=== PATIENT | male | born 1935 | race Caucasian/White ===

== ENCOUNTER 2016-03-25 11:49 | Emergency (ER) | payer MEDICARE, BC ==
[2016-03-25] MEDS ORDERED: ONDANSETRON HCL/PF 2 MG/ML VIAL IV ONE (13:18)
[2016-03-25 13:33] LABS: Hematocrit 35.2 % (42.0-52.0); Hemoglobin 11.4 gm/dL (13.5-18.0); Mean Cell Volume 85.2 fl (78-100); Mean Corpuscular Hemoglobin 27.6 pg (27-31); Mean Corpuscular Hgb Conc 32.4 g/dl (32-36); Mean Platelet Volume 9.5 fl (6.0-9.5); Neutrophil # 5.5 K/mm3 (1.3-6.0); Neutrophil % 72.2 % (42-75.0); Platelet Count 226 K/mm3 (150-450); Red Blood Count 4.13 M/mm3 (4.7-6.0); Red Cell Distribution Width 13.2 % (11.5-14.0); White Blood Count 7.6 K/mm3 (4.0-10.5)
[2016-03-25 13:45] LABS: Prothrombin Time (Patient) 10.9 Seconds (9.4-11.4)
[2016-03-25 13:46] LABS: INR 1.05 INR (0.90-1.10); Partial Thrombolplastin Time 27.7 Seconds (24-32)
[2016-03-25 13:51] LABS: ALT 20 U/L (19-67); AST 17 U/L (0-48); Albumin * 3.4 gm/dl (3.4-5.0); Alkaline Phosphatase * 121 U/L (50-170); Amylase * 30 U/L (25-115); Anion Gap 11.7 mmol/L (6.8-13.8); BUN/Creatinine Ratio 22.8 (9.0-21.6); Bilirubin, Total 0.4 mg/dL (0.0-1.1); Blood Urea Nitrogen 26 mg/dL (6-23); Ca. Corrected For Albumin 9.6 mg/dL (8.4-10.2); Calcium * 9.4 mg/dL (7.9-10.9); Carbon Dioxide 26.6 mmol/L (24-32.6); Chloride 108 mmol/L (97-106); Glucose * 108 mg/dL (70-110); Lipase 91 U/L (73-393); Potassium 4.3 mmol/L (3.4-4.6); Sodium 142 mmol/L (132-142); Total Protein 6.6 gm/dL (6.2-8.2); Troponin I Less than 0.017 ng/ml (0.00-0.10)
[2016-03-25 14:14] LABS: Urine Bilirubin Negative (NEGATIVE); Urine Blood 50 /ul (NEGATIVE); Urine Ketone Negative (NEGATIVE); Urine Protein 30 mg/dL (NEGATIVE); Urine Urobilinogen Normal (NORMAL); Urine pH 7.5 pH (5.0-7.0)
[2016-03-25 14:15] LABS: Urine Appearance Slightly Cloudy; Urine Bacteria TRACE; Urine Color Yellow; Urine Nitrite Positive (NEGATIVE); Urine WBC 0-5 /hpf (0-5)
--- NOTE | 2016-03-25 14:53 | ERNOTE ---
Medical Problem HPI - Narrative Date of Service: 03/25/16 - General Chief Complaint: Nausea/Vomiting Time Seen by Provider: 03/25/16 13:15 Source: patient, family - Exam Limitations: no limitations - Immun/Allergies/Home Medications Immunizations: IMMUNIZATION HX Immunizations Up to Date Yes History of Influenza Vaccine Yes Hx Pneumococcal Vaccination More Information Required Allergies/Adverse Reactions: Allergies orange (food color) Allergy (Intermediate, Verified 03/25/16 12:04) Shortness of Breath orange flavor Allergy (Intermediate, Verified 03/25/16 12:04) Shortness of Breath colchicine [From Colcrys] Allergy (Unknown, Verified 03/25/16 12:04) promethazine HCl [From Phenergan] Allergy (Unknown, Verified 03/25/16 12:04) sertraline Allergy (Unknown, Verified 03/25/16 12:04) hydrocodone [Hydrocodone] Adverse Reaction (Mild, Verified 03/25/16 12:04) out of his head nortriptyline [Nortriptyline] Adverse Reaction (Mild, Verified 03/25/16 12:04) Headache oxycodone [Oxycodone] Adverse Reaction (Mild, Verified 03/25/16 12:04) out of his head pregabalin [From Lyrica] Adverse Reaction (Mild, Verified 03/25/16 12:04) Headache zolpidem [Zolpidem] Adverse Reaction (Mild, Verified 03/25/16 12:04) out of his head Home Medications: HOME MEDICATIONS Cephalexin [Keflex] 1,000 mg PO BID #28 capsule 03/25/16 [Last Taken Unknown] - History of Present History Timing: constant Severity: mild Modifying Factors - (Improves): Present: other - nothing Modifying Factors - (Worsens): Present: movement Review of Systems - Review of Systems Constitutional: Present: malaise EYE: Present: no symptoms reported ENT: Present: no symptoms reported Respiratory: Present: cough Cardiology: Present: chest pain Gastrointestinal/Abdominal: Present: abdominal pain Genitourinary: Present: pain Musculoskeletal: Present: no symptoms reported Skin: Present: no symptoms reported Neurological: Present: no symptoms reported Endocrine: Present: no symptoms reported Hematologic/Lymphatic: Present: no symptoms reported Psych: Present: no symptoms reported - Patient's Past Medical History Patient History - Medical: Anemia, Arthritis, Chronic Pain, GERD, Kidney stone, Other Patient History - Cardiac/Respiratory: Coronary Heart Disease, COPD, Myocardial Infarction, Valvular Heart Disease - aortic stenosis, aortic regurgitation Patient History - Cancer: Prostate Patient History - Surgical Procedures: Appendectomy, Back Surgery, Cataracts, Colonoscopy, Cardiac stent, EGD, Total Hip Replacement, Total Knee Replacement, Other - Family History Mother Family History - Medical: , Alzheimer's Disease Family History - Cardiac/Respiratory: No pertinent hx - Social History Living Situations: home Does anyone smoke in the home?: No Smoking Status: Never smoker Have you smoked in the past 12 months: No Do you dip or chew tobacco: No Alcohol Use: rarely Drug Use: none Physical Exam - Physical Exam General Appearance: Present: wd/wn, alert, no apparent distress Eye Exam: Normal inspection: bilateral, PERRL: bilateral Ears, Nose, Throat: Present: normal ENT inspection, hearing grossly normal, normal pharynx Neck: Present: normal inspection, nontender Respiratory: Present: no respiratory distress, no accessory muscle use, chest nontender, lungs clear, crackles - Diffuse on both lungs Cardiovascular/Chest: Present: regular rate, rhythm, normal peripheral pulses, systolic murmur Peripheral Pulses: N=norm/S=strong/W=weak/B=bound/A=absent: Carotid (R): Normal , Carotid (L): Normal, Radial (R): Normal, Radial (L): Normal, Dorsalis-pedis (R ): Normal, Dorsalis-pedis (L): Normal Gastrointestinal/Abdominal: Present: normal bowel sounds, soft, tenderness - Lower abdomen diffuse. Absent: guarding, rebound, McBurney sign, Obturator sign , Thomas sign, mass, hernia Back Exam: Present: no CVA tenderness Extremity Exam: Present: normal inspection, non-tender, no edema Neurological Exam: Present: alert, oriented, normal mood/affect, no motor/ sensory deficits, box packer II-XII nml as tested, normal cerebellar test, facial droop Skin Exam: Present: normal color, warm/dry. Absent: skin rash Lymphatic Exam: Present: no adenopathy ED Progress - Date and Time Seen: Date and Time: 03/25/16 16:28 Patient with supra pubic tenderness. Patient has no distention and at the moment no guarding and no rebound. Patient has a soft abdomen. Patient has been given Tx for UTI. Patient with a good social support. 03/25/16 16:31 Patient with Hx of rib Fx and chronic chest pain. Patient with no ST Elevations and negative Trop. - Results and Orders Patient's Lab Results:: I have reviewed the patient's lab results. - Vital Signs Patient's Vital Signs:: I have reviewed the patient's vital signs. Vital Signs: Vital Signs 03/25/16 03/25/16 03/25/16 11:56 13:28 13:54 Temperature 36.0 C L Pulse Rate 80 75 84 Respiratory 20 22 H 12 Rate Blood Pressure 135/85 145/59 142/74 O2 Sat by Pulse 96 95 98 Oximetry 03/25/16 14:31 Temperature Pulse Rate 85 Respiratory 16 Rate Blood Pressure 175/68 O2 Sat by Pulse 95 Oximetry - EKG EKG: NSR, no ST T wave changes EKG Comments: No ST Elevations, HR: 69, LAD - X-Ray X-Ray #1 X-Ray: chest X-ray Comments: No acute processes reported by radiologist - Progress/Reassessment Chief Complaint: Nausea/Vomiting Progress:: Improved Plan - Plan Plan: Patient will be given antibiotics and will be discharge home Departure - Departure Clinical Impression: UTI (urinary tract infection) Chest pain Qualifiers: Chest pain type: unspecified Qualified Code(s): R07.9 - Chest pain, unspecified Abdominal pain Qualifiers: Abdominal location: lower abdomen, unspecified Qualified Code(s): R10.30 - Lower abdominal pain, unspecified Disposition: Home self-care Condition: Stable Instructions: Chest Wall Pain, [id number], Abdominal Pain, Adult, Easy-to- Read, Urinary Tract Infection, Adult, [id number] Referrals: Cricket Yi DO [Primary Care Provider] - Prescriptions: Cephalexin [Keflex] 1,000 mg PO BID #28 capsule
[2016-03-25] MEDS ORDERED: ONDANSETRON HCL/PF 2 MG/ML VIAL ONE (15:08)
[2016-03-25 16:41] VITALS: BP 143/83
== END 2016-03-25 16:45 | disposition home or self-care (01) ==
LOC: ER 11:49
DX: R07.9 Chest pain, unspecified (principal); N39.0 Urinary tract infection, site not specified; Z96.649 Presence of unspecified artificial hip joint; Z96.659 Presence of unspecified artificial knee joint; Z95.5 Presence of coronary angioplasty implant and graft; Z85.46 Personal history of malignant neoplasm of prostate

== ENCOUNTER 2016-04-06 09:02 | Emergency (ER) | payer MEDICARE, BC ==
[2016-04-06 10:31] LABS: Hematocrit 32.3 % (42.0-52.0); Hemoglobin 10.5 gm/dL (13.5-18.0); Mean Cell Volume 85.4 fl (78-100); Mean Corpuscular Hemoglobin 27.8 pg (27-31); Mean Corpuscular Hgb Conc 32.5 g/dl (32-36); Mean Platelet Volume 9.8 fl (6.0-9.5); Neutrophil # 3.2 K/mm3 (1.3-6.0); Neutrophil % 69.1 % (42-75.0); Platelet Count 192 K/mm3 (150-450); Red Blood Count 3.78 M/mm3 (4.7-6.0); Red Cell Distribution Width 13.7 % (11.5-14.0); White Blood Count 4.6 K/mm3 (4.0-10.5)
[2016-04-06 10:44] LABS: Albumin * 3.1 gm/dl (3.4-5.0); Anion Gap 9.7 mmol/L (6.8-13.8); BUN/Creatinine Ratio 22.1 (9.0-21.6); Bilirubin, Total 0.5 mg/dL (0.0-1.1); Ca. Corrected For Albumin 9.2 mg/dL (8.4-10.2); Calcium * 8.8 mg/dL (7.9-10.9); Carbon Dioxide 28.3 mmol/L (24-32.6); Total Protein 6.4 gm/dL (6.2-8.2)
[2016-04-06 11:17] LABS: Urine Bilirubin Negative (NEGATIVE); Urine Blood 25 /ul (NEGATIVE); Urine Ketone Negative (NEGATIVE); Urine Nitrite Negative (NEGATIVE); Urine Protein 30 mg/dL (NEGATIVE); Urine Specific Gravity >=1.030 SP.GR. (1.005-1.030); Urine Urobilinogen Normal (NORMAL); Urine pH 5.5 pH (5.0-7.0)
[2016-04-06 12:08] LABS: Urine Color Yellow
[2016-04-06 12:09] LABS: Urine Appearance Clear; Urine Bacteria TRACE; Urine WBC 0-5 /hpf (0-5)
--- NOTE | 2016-04-06 12:20 | ERNOTE ---
Abdominal HPI - Narrative Date of Service: 04/06/16 - General Chief Complaint: Constipation Time Seen by Provider: 04/06/16 10:16 Source: patient Exam Limitations: no limitations - Immun/Allergies/Home Medications Immunizatons: IMMUNIZATION HX Immunizations Up to Date Yes History of Influenza Vaccine Yes Hx Pneumococcal Vaccination More Information Required Allergies/Adverse Reactions: Allergies orange (food color) Allergy (Intermediate, Verified 04/06/16 09:21) Shortness of Breath orange flavor Allergy (Intermediate, Verified 04/06/16 09:21) Shortness of Breath colchicine [From Colcrys] Allergy (Unknown, Verified 04/06/16 09:21) promethazine HCl [From Phenergan] Allergy (Unknown, Verified 04/06/16 09:21) sertraline Allergy (Unknown, Verified 04/06/16 09:21) hydrocodone [Hydrocodone] Adverse Reaction (Mild, Verified 04/06/16 09:21) out of his head nortriptyline [Nortriptyline] Adverse Reaction (Mild, Verified 04/06/16 09:21) Headache oxycodone [Oxycodone] Adverse Reaction (Mild, Verified 04/06/16 09:21) out of his head pregabalin [From Lyrica] Adverse Reaction (Mild, Verified 04/06/16 09:21) Headache zolpidem [Zolpidem] Adverse Reaction (Mild, Verified 04/06/16 09:21) out of his head Home Medications: HOME MEDICATIONS Cephalexin [Keflex] 500 mg PO 04/06/16 [Last Taken Unknown] Montelukast Sodium [Singulair] 10 mg PO DAILY 04/06/16 [Last Taken Unknown] Tamsulosin HCl [Flomax] 0.4 mg PO DAILY 04/06/16 [Last Taken Unknown] traMADol HCL [Ultram] 50 mg PO QID PRN 04/06/16 [Last Taken Unknown] - History of Present Illness Narrative: Patient presents to the ED with complaint of constipation. He relates he had recent back surgery and hasn't had a bowel movement for 7 days. Home enema did not help. He denies abdominal pain. No fever. No vomiting. No CP or SOB. Tramadol for pain at home from his back surgery. Nothing seems to make this better or worse. Timing: constant Quality: moderate Activities at Onset: none Modifying Factors - (Improves): Present: other - nothing Modifying Factors - (Worsens): Present: other - nothing Associated Symptoms: Absent: chest pain, diarrhea-gross blood, fever/chills, loss of appetite, shortness of breath, swelling/mass in abdomen Prior Treatment: Present: other - recent back surgery Review of Systems - Review of Systems Constitutional: Absent: fever Respiratory: Absent: shortness of breath Cardiology: Absent: chest pain Gastrointestinal/Abdominal: Absent: abdominal pain Genitourinary: Present: other - states on ABx for recent infection. Absent: dysuria - Patient's Past Medical History Patient History - Medical: Anemia, Arthritis, Chronic Pain, GERD, Kidney stone, Other Patient History - Cardiac/Respiratory: COPD, Myocardial Infarction, Valvular Heart Disease Patient History - Cancer: Prostate Patient History - Surgical Procedures: Appendectomy, Back Surgery, Cataracts, Colonoscopy, Cardiac stent, EGD, Total Hip Replacement, Total Knee Replacement, Other Patient History - Other: None - Family History Mother Family History - Medical: , Alzheimer's Disease Family History - Cardiac/Respiratory: No pertinent hx - Social History Living Situations: home Does anyone smoke in the home?: No Smoking Status: Never smoker Alcohol Use: rarely Drug Use: none - Immunizations Immunizations Up to Date: Yes Hx Pneumococcal Vaccination: More Information Required to Determine History of Influenza Vaccine: Yes Physical Exam - Physical Exam General Appearance: Present: alert, no apparent distress Eye Exam: Normal inspection: bilateral, PERRL: bilateral Ears, Nose, Throat: Present: normal ENT inspection Neck: Present: normal inspection Respiratory: Present: no respiratory distress, normal breath sounds, no accessory muscle use, lungs clear Cardiovascular/Chest: Present: regular rate, rhythm Gastrointestinal/Abdominal: Present: normal bowel sounds, nontender, nondistended, soft, no organomegaly. Absent: tenderness, abnormal bowel sounds , distended Back Exam: Absent: CVA tenderness (R), CVA tenderness (L) Extremity Exam: Present: normal inspection Neurological Exam: Present: alert, normal mood/affect, no motor/sensory deficits , sales engineer account manager II-XII nml as tested. Absent: motor weakness Skin Exam: Absent: skin rash ED Progress - Results and Orders Patient's Lab Results:: I have reviewed the patient's lab results. - Vital Signs Patient's Vital Signs:: I have reviewed the patient's vital signs. Vital Signs: Vital Signs 04/06/16 09:19 Temperature 36.3 C L Pulse Rate 82 Respiratory 14 Rate Blood Pressure 133/68 O2 Sat by Pulse 90 Oximetry - X-Ray X-Ray #1 X-Ray: abdomen X-ray Comments: I reviewed the official radiology report - Progress/Reassessment Chief Complaint: Constipation Progress Note-Subjective: 04/06/16 12:18 At 1218 he is requesting to go home. Relates BM here. No abdominal pain. Abd non-tender. I disucssed warning signs and reasons to return as well as the need for close f/u. Departure - Departure Clinical Impression: Constipation Disposition: Home self-care Condition: Stable Instructions: Constipation, Adult, [id number] Additional Instructions: Fluids. Take stool softener. Follow-up with your doctor within 3 days for a re -check. Return for abdominal pain, fever, vomiting or if your condition worsens or changes in any way. Referrals: Cricket Yi DO [Primary Care Provider] -
[2016-04-06 13:10] VITALS: BP 133/73
== END 2016-04-06 12:45 | disposition home or self-care (01) ==
LOC: ER 09:02
DX: K59.00 Constipation, unspecified (principal); Z95.5 Presence of coronary angioplasty implant and graft; Z96.649 Presence of unspecified artificial hip joint; Z96.659 Presence of unspecified artificial knee joint; Z98.49 Cataract extraction status, unspecified eye; Z85.46 Personal history of malignant neoplasm of prostate

== ENCOUNTER 2016-04-10 15:08 | Emergency (ER) | payer MEDICARE, BC ==
[2016-04-10 15:18] VITALS: BP 155/51
[2016-04-10] MEDS ORDERED: ONDANSETRON 4 MG TAB.RAPDIS PO ONE (16:01)
--- NOTE | 2016-04-10 16:01 | ERNOTE ---
Medical Problem HPI - Narrative Date of Service: 04/10/16 - General Chief Complaint: Nausea/Vomiting Time Seen by Provider: 04/10/16 15:56 Source: patient Exam Limitations: no limitations - Immun/Allergies/Home Medications Immunizations: IMMUNIZATION HX Immunizations Up to Date Yes History of Influenza Vaccine Yes Hx Pneumococcal Vaccination Yes Allergies/Adverse Reactions: Allergies orange (food color) Allergy (Intermediate, Verified 04/06/16 09:21) Shortness of Breath orange flavor Allergy (Intermediate, Verified 04/06/16 09:21) Shortness of Breath colchicine [From Colcrys] Allergy (Unknown, Verified 04/06/16 09:21) promethazine HCl [From Phenergan] Allergy (Unknown, Verified 04/06/16 09:21) sertraline Allergy (Unknown, Verified 04/06/16 09:21) hydrocodone [Hydrocodone] Adverse Reaction (Mild, Verified 04/06/16 09:21) out of his head nortriptyline [Nortriptyline] Adverse Reaction (Mild, Verified 04/06/16 09:21) Headache oxycodone [Oxycodone] Adverse Reaction (Mild, Verified 04/06/16 09:21) out of his head pregabalin [From Lyrica] Adverse Reaction (Mild, Verified 04/06/16 09:21) Headache zolpidem [Zolpidem] Adverse Reaction (Mild, Verified 04/06/16 09:21) out of his head Home Medications: HOME MEDICATIONS Cephalexin [Keflex] 500 mg PO 04/06/16 [Last Taken Unknown] Montelukast Sodium [Singulair] 10 mg PO DAILY 04/06/16 [Last Taken Unknown] Tamsulosin HCl [Flomax] 0.4 mg PO DAILY 04/06/16 [Last Taken Unknown] traMADol HCL [Ultram] 50 mg PO QID PRN 04/06/16 [Last Taken Unknown] Ondansetron [Zofran Odt] 4 mg PO Q6H PRN #20 tab 04/10/16 [Last Taken Unknown] - History of Present History Narrative: Here for some nausea but has had no vomiting or abdominal pain - Patient's Past Medical History Patient History - Medical: Anemia, Arthritis, Chronic Pain, GERD, Kidney stone, Other Patient History - Cardiac/Respiratory: COPD, Myocardial Infarction, Valvular Heart Disease Patient History - Cancer: Prostate Patient History - Surgical Procedures: Appendectomy, Back Surgery, Cataracts, Colonoscopy, Cardiac stent, EGD, Total Hip Replacement, Total Knee Replacement, Other Patient History - Other: None - Family History Mother Family History - Medical: , Alzheimer's Disease Family History - Cardiac/Respiratory: No pertinent hx - Social History Living Situations: home Abuse History: No History of abuse Psych History: No pertinent hx Does anyone smoke in the home?: No Smoking Status: Former smoker Alcohol Use: rarely Drug Use: none - Immunizations Immunizations Up to Date: Yes Hx Pneumococcal Vaccination: Yes History of Influenza Vaccine: Yes ED Progress - Vital Signs Vital Signs: Vital Signs 04/10/16 15:14 Temperature 36.5 C Pulse Rate 82 Respiratory 16 Rate Blood Pressure 155/51 O2 Sat by Pulse 94 Oximetry - Progress/Reassessment Chief Complaint: Nausea/Vomiting Departure - Departure Clinical Impression: Nausea alone Disposition: Home self-care Condition: Good Instructions: Nausea, Adult Prescriptions: Ondansetron [Zofran Odt] 4 mg PO Q6H PRN #20 tab PRN Reason: Nausea
[2016-04-10] MEDS ORDERED: ONDANSETRON 4 MG TAB.RAPDIS ONE (16:12)
== END 2016-04-10 16:28 | disposition home or self-care (01) ==
LOC: ER 15:08
DX: R11.0 Nausea (principal); Z85.46 Personal history of malignant neoplasm of prostate; Z87.442 Personal history of urinary calculi; Z95.5 Presence of coronary angioplasty implant and graft

== ENCOUNTER 2016-04-11 15:10 | Emergency (ER) | payer MEDICARE, BC ==
[2016-04-11 15:30] VITALS: BP 141/66
[2016-04-11] MEDS ORDERED: METOCLOPRAMIDE HCL 5 MG/ML VIAL IV ONE (16:05)
[2016-04-11] MEDS ORDERED: NORMAL SALINE 1,000 ML IV ONE (16:05)
--- NOTE | 2016-04-11 16:07 | ERNOTE ---
Medical Problem HPI - Narrative Date of Service: 04/11/16 - General Chief Complaint: Nausea/Vomiting Time Seen by Provider: 04/11/16 15:52 Source: patient, RN notes reviewed Exam Limitations: dementia - Immun/Allergies/Home Medications Immunizations: IMMUNIZATION HX Immunizations Up to Date Yes History of Influenza Vaccine Yes Hx Pneumococcal Vaccination No Allergies/Adverse Reactions: Allergies orange (food color) Allergy (Intermediate, Verified 04/06/16 09:21) Shortness of Breath orange flavor Allergy (Intermediate, Verified 04/06/16 09:21) Shortness of Breath colchicine [From Colcrys] Allergy (Unknown, Verified 04/06/16 09:21) promethazine HCl [From Phenergan] Allergy (Unknown, Verified 04/06/16 09:21) sertraline Allergy (Unknown, Verified 04/06/16 09:21) hydrocodone [Hydrocodone] Adverse Reaction (Mild, Verified 04/06/16 09:21) out of his head nortriptyline [Nortriptyline] Adverse Reaction (Mild, Verified 04/06/16 09:21) Headache oxycodone [Oxycodone] Adverse Reaction (Mild, Verified 04/06/16 09:21) out of his head pregabalin [From Lyrica] Adverse Reaction (Mild, Verified 04/06/16 09:21) Headache zolpidem [Zolpidem] Adverse Reaction (Mild, Verified 04/06/16 09:21) out of his head Home Medications: HOME MEDICATIONS Cephalexin [Keflex] 500 mg PO 04/06/16 [Last Taken Unknown] Montelukast Sodium [Singulair] 10 mg PO DAILY 04/06/16 [Last Taken Unknown] Tamsulosin HCl [Flomax] 0.4 mg PO DAILY 04/06/16 [Last Taken Unknown] traMADol HCL [Ultram] 50 mg PO QID PRN 04/06/16 [Last Taken Unknown] Ondansetron [Zofran Odt] 4 mg PO Q6H PRN #20 tab 04/10/16 [Last Taken Unknown] - History of Present History Narrative: 80 y/o male ambulatory to the ED with his for nausea and vomiting. He presented for these symptoms yesterday, but then did not remember why he was here. He was prescribed Zofran ODT but does not know for sure if he has been taking it. He denies diarrhea. Review of Systems - Review of Systems Constitutional: Present: chills, weakness, fatigue, malaise. Absent: fever EYE: Present: no symptoms reported ENT: Present: no symptoms reported Respiratory: Absent: shortness of breath, cough Cardiology: Absent: palpitations, syncope Gastrointestinal/Abdominal: Present: See HPI Genitourinary: Absent: dysuria, hematuria Musculoskeletal: Present: no symptoms reported Skin: Present: no symptoms reported Neurological: Present: dizziness/light-headedness. Absent: headache Endocrine: Present: no symptoms reported Hematologic/Lymphatic: Present: no symptoms reported Psych: Present: anxiety - Patient's Past Medical History Patient History - Medical: Anemia, Arthritis, Chronic Pain, Dementia, GERD, Kidney stone, Other Patient History - Cardiac/Respiratory: COPD, Myocardial Infarction, Valvular Heart Disease Patient History - Cancer: Prostate Patient History - Surgical Procedures: Appendectomy, Back Surgery, Cataracts, Colonoscopy, Cardiac stent, EGD, Total Hip Replacement, Total Knee Replacement, Other Patient History - Other: None - Family History Mother Family History - Medical: , Alzheimer's Disease Family History - Cardiac/Respiratory: No pertinent hx - Social History Living Situations: spouse Abuse History: No History of abuse Psych History: No pertinent hx Does anyone smoke in the home?: No Smoking Status: Smoker, status unknown Have you smoked in the past 12 months: No Do you dip or chew tobacco: No Patient requests Smoking Cessation Consult: No Initiate information on Smoking Cessation: No Alcohol Use: rarely Drug Use: none - Immunizations Immunizations Up to Date: Yes Hx Pneumococcal Vaccination: No History of Influenza Vaccine: Yes Physical Exam - Physical Exam General Appearance: Present: alert, mild distress, thin Neck: Present: normal inspection, nontender, supple Respiratory: Present: no respiratory distress, normal breath sounds, no accessory muscle use, lungs clear Cardiovascular/Chest: Present: regular rate, rhythm, no murmur, normal peripheral pulses Gastrointestinal/Abdominal: Present: normal bowel sounds, nondistended, soft, tenderness - diffuse. Absent: rebound, mass Neurological Exam: Present: alert, disoriented to time, disoriented to situation , other - flat affect. Absent: disoriented to person, disoriented to place Skin Exam: Present: warm/dry, pallor ED Progress - Results and Orders Patient's Lab Results:: I have reviewed the patient's lab results. - Vital Signs Patient's Vital Signs:: I have reviewed the patient's vital signs. Vital Signs: Vital Signs 04/11/16 15:26 Temperature 36.6 C Pulse Rate 83 Respiratory 16 Rate Blood Pressure 141/66 O2 Sat by Pulse 93 Oximetry - X-Ray X-Ray #1 X-Ray: abdomen Interpretation: Reviewed by me X-ray Comments: Indication: Upper abdominal pain since this morning. Vomiting. Technique: Supine and upright views the abdomen utilizing four total images compared to prior examination dated April 06, 2016. Findings: There is moderate fecal retention seen throughout the colon. No dilation of the colon. No air-filled or dilated loops of small bowel to suggest obstruction. No free air or free fluid. Diffuse decreased bony mineralization. Extensive degenerative change of the spine, SI joints and left hip. Right hip arthroplasty changes identified. Kyphoplasty changes seen at L4. Degenerative scoliosis of the spine. IMPRESSION: 1. MODERATE FECAL RETENTION WITHOUT EVIDENCE FOR OBSTRUCTION. 2. NO ACUTE PROCESS. 3. POSTSURGICAL CHANGES DISCUSSED ABOVE. 4. DIFFUSE DECREASED BONY MINERALIZATION AND EXTENSIVE DEGENERATIVE CHANGES ABOVE. Electronically signed by Abilio Calvo D.O.. - Progress/Reassessment Chief Complaint: Nausea/Vomiting Progress:: Improved Progress Note-Subjective: 04/11/16 19:01 Continues to have nausea after Reglan. Does not think he has taken Zofran ODT since around 0300. Will try IV Zofran. 04/11/16 19:30 Reports feeling better after Zofran. Son and [id number] here, visiting from out of town. Discussed patient's frequent visits to the ED and poor memory. The patient does not drive, but his does and she appears to have some dementia as well. Voiced concerns about the safety of the patient and his spouse in light of their disorientation. Encouraged family to speak to patient' s PCP regarding assistance available to them. Departure - Departure Clinical Impression: Nausea & vomiting Qualifiers: Vomiting type: unspecified Vomiting Intractability: unspecified Qualified Code( s): R11.2 - Nausea with vomiting, unspecified Disposition: Home Follow Up Needed Condition: Stable Instructions: Nausea, Adult, [id number] Additional Instructions: Continue your routine medications Take Zofran (ondanstranon) as directed for nausea Referrals: Cricket Yi DO [Primary Care Provider] -
[2016-04-11 16:26] LABS: Hematocrit 34.9 % (42.0-52.0); Hemoglobin 11.2 gm/dL (13.5-18.0); Mean Cell Volume 85.5 fl (78-100); Mean Corpuscular Hemoglobin 27.5 pg (27-31); Mean Corpuscular Hgb Conc 32.1 g/dl (32-36); Mean Platelet Volume 10.2 fl (6.0-9.5); Neutrophil # 2.7 K/mm3 (1.3-6.0); Platelet Count 196 K/mm3 (150-450); Red Blood Count 4.08 M/mm3 (4.7-6.0); Red Cell Distribution Width 13.6 % (11.5-14.0); White Blood Count 4.5 K/mm3 (4.0-10.5)
[2016-04-11 16:56] LABS: Albumin * 3.4 gm/dl (3.4-5.0); Anion Gap 11.3 mmol/L (6.8-13.8); BUN/Creatinine Ratio 24.8 (9.0-21.6); Bilirubin, Total 0.5 mg/dL (0.0-1.1); Ca. Corrected For Albumin 9.6 mg/dL (8.4-10.2); Calcium * 9.4 mg/dL (7.9-10.9); Carbon Dioxide 28.9 mmol/L (24-32.6); Potassium 4.2 mmol/L (3.4-4.6)
[2016-04-11] MEDS ORDERED: METOCLOPRAMIDE HCL 5 MG/ML VIAL ONE (18:16)
[2016-04-11] MEDS ORDERED: ONDANSETRON HCL/PF 2 MG/ML VIAL IV ONE (19:02)
[2016-04-11] MEDS ORDERED: ONDANSETRON HCL/PF 2 MG/ML VIAL ONE (19:07)
[2016-04-11 19:22] LABS: Urine Bilirubin Negative (NEGATIVE); Urine Blood 25 /ul (NEGATIVE); Urine Ketone Negative (NEGATIVE); Urine Nitrite Negative (NEGATIVE); Urine Protein 30 mg/dL (NEGATIVE); Urine Specific Gravity >=1.030 SP.GR. (1.005-1.030); Urine Urobilinogen Normal (NORMAL); Urine pH 5.5 pH (5.0-7.0)
[2016-04-11 19:34] LABS: Urine Appearance Clear; Urine Bacteria 1+; Urine Color Yellow; Urine Hyaline Cast 0-5 /LPF; Urine Mucus Few - 1+; Urine RBC 0-5 /hpf (0-5)
== END 2016-04-11 20:13 | disposition home or self-care (01) ==
LOC: ER 15:10
DX: R11.2 Nausea with vomiting, unspecified (principal)

== ENCOUNTER 2016-06-03 09:33 | Emergency (ER) | payer MEDICARE, BC ==
--- OUTSIDE RECORDS SUMMARY | 2016-06-03 10:02 | XMS REPORT | Continuity of Care Document ---
:1935 Author Organization [facility] ([facility]) Address [address] [place] [address] Phone [phone] Care Team Providers Name Role Phone Cricket Yi Primary Care Provider [phone] Source Comments This disclosure is being made pursuant to the Care Everywhere program, applicable federal and state laws, and may not contain all informaitonavailable regarding this patient.[facility] ([facility]) Active Allergies and Adverse Reactions Allergen Noted Date Severity Reactions Comments Atorvastatin 07/21/2013 OTHER Muscle aching Hydrocodone Hallucinations Nortriptyline 03/30/2013 Agitation,Hallucinations,Menta l status changes Perkins Urticaria (Hives) Oxycodone Hallucinations Pregabalin 03/30/2013 Headache Severe headaches Zolpidem Tartrate Mental status changes Current Medications Prescription Sig. Disp. Refills Start Date End Date Status LYCOPENE PO Take 12 mg by Active mouth at bedtime. ALBUTEROL INH Use 2 Puffs by Active inhalation 4 times daily as needed. 2 times daily loratadine (CLARITIN) take 10 mg by Active 10 mg tablet mouth daily. MOMETASONE FUROATE use 2 Sprays into Active (NASONEX NA) the nose daily. nitroglycerin 0.[address] 0.4 mg Active tablet under the tongue every 5 minutes as needed. aspirin 81 mg EC tablet Take 81 mg by Active mouth daily cholecalciferol Take 400 Units by Active (VITAMIN D3) 400 unit mouth 2 times tablet daily. omeprazole 20 mg Take 20 mg by Active extended release mouth 2 times capsule daily. budesonide 0.5 mg/2 mL Use 0.5 mg by Active nebulizer suspension inhalation 2 times daily. IPRATROPIUM BROMIDE INH Use by Active inhalation 2 times daily. 0.5mg/2.5ml by nebulizer atorvastatin 10 mg Take 1 tablet (10 30 tablet 11 10/09/2015 Active tablet mg total) by mouth daily. Active Problems Problem Noted Date Aortic stenosis, severe 07/05/2013 S/P TAVR (transcatheter aortic valve replacement) 07/05/2013 Overview: Abraham Florencia S3 transcatheter 23 mm valve using percutaneous left femoral artery access CAD (coronary artery disease) 07/05/2013 Overview: Cath 02/18 RCA mid 60% ISR, LAD mid 50% COPD (chronic obstructive pulmonary disease) 07/05/2013 Biggs's esophagus 03/16/2009 GERD (gastroesophageal reflux disease) 03/16/2009 Pain in joint, pelvic region and thigh 01/11/2007 Spinal stenosis, unspecified region other than cervical 07/20/2006 Resolved Problems Problem Noted Date Resolved Date Aortic valve stenosis 07/05/2013 12/28/2013 Chest pain 07/05/2013 10/09/2015 MACEDO (dyspnea on exertion) 07/05/2013 12/28/2013 S/P AVR (aortic valve replacement) 07/05/2013 12/28/2013 Immunizations Name Dates Previously Given Next Due Pneumococcal, unspecified 12/07/2002 Social History Tobacco Use Types Packs/Day Years Used Date Former Smoker 1 50 Quit: 03/09/2005 Smokeless Tobacco: Never Used Alcohol Use Drinks/Week oz/Week Comments No Last Filed Vital Signs Vital Sign Reading Time Taken Blood Pressure 151/60 10/09/2015 8:03 AM CDT Pulse 66 10/09/2015 8:03 AM CDT Temperature 36.2 C (97.2 F) 10/09/2015 8:03 AM CDT Respiratory Rate 18 10/09/2015 8:03 AM CDT Height 1.753 m (5' 9") 10/08/2015 4:00 AM CDT Weight 67.3 kg (148 lb 5.9 oz) 10/09/2015 6:07 AM CDT Body Mass Index 21.9 10/09/2015 6:07 AM CDT Oxygen Saturation 94% 10/09/2015 8:03 AM CDT Plan of Care Health Maintenance Due Date Last Done Comments Hepatitis B Vaccine (1 of 3 1935 - Primary Series) Tdap Vaccine 1944 Td Vaccine 09/16/1951 Colonoscopy 1983 Zoster Vaccine 1993 Pneumococcal Vaccine (1 of 1998 2 - PCV13) Lipid Disorder Screening 10/07/2020 10/08/2015, 06/16/2013 Influenza Vaccine: Seasonal Addressed 12/13/2015 (Completed Overridden with the outside this hospital intention of not or clinic) completing the topic Results from Last 3 Months Not on file
--- OUTSIDE RECORDS SUMMARY | 2016-06-03 10:03 | XMS REPORT | Summary of Care ---
:1935 Author Organization [facility] Address [address] [place] [phone]- Care Team Providers Name Role Phone Cricket Yi Primary Care Physician Encounter Date(s): 03/28/16 - 03/28/[address] [address]- [facility] Discharge Disposition: 01 Discharged to Home or Self Care Attending Physician: Cricket Yi DO Admitting Physician: Cricket Yi DO Vital Signs Most recent to oldest [Reference Range]: 1 Heart Rate Monitored [60-100 bpm] 69 bpm (03/28/16 8:38 AM) Respiratory Rate [12-20 br/min] 24 br/min *HI* (03/28/16 8:38 AM) Problem List Condition Effective Dates Status Health Status Informant Allergy(Confirmed) Active Anemia(Confirmed) Active Anxiety(Confirmed) Active Aortic regurgitation(Confirmed) Active Aortic stenosis-severe(Confirmed) Active Benign neoplasm of prostate(Confirmed) Active CAD - Coronary artery Active disease(Confirmed) COPD - Chronic obstructive pulmonary Active disease(Confirmed) Depression(Confirmed) Active 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 Fatigue(Confirmed) Active Fracture of lt foot(Confirmed) 2010 Active GERD - Gastro-esophageal reflux Active disease(Confirmed) Hypotension(Confirmed) Active Mitral regurgitation(Confirmed) Active Ruptured disc(Confirmed) 1999 Active Chronic left lung scarring(Confirmed) Active Urinary retention(Confirmed) Active Allergies, Adverse Reactions, Alerts Substance Reaction Severity Status colchicine diarrhea Active Colcrys SEVERE Active Unknown HYDROcodone-acetaminophen Hallucinations Active nortriptyline Headaches Active oxyCODONE Unknown Active pregabalin Headaches Active zolpidem unknown Active Medications acetaminophen 650 mg, Oral, q4hr interval, PRN pain mild 1-3, 0 Refill(s), Start Date: 7:34:00 [employer] Start Date: 03/28/16 Status: Orderedalbuterol 5 mg/mL (0.5%) inhalation solution 0.5 mL, Inhale, q4hr interval, COPD 2-3 times a day via nebulizer, # 90 mL, 1 Refill(s), Start Date: 10/16/14 16:02:00 CDT, Pharmacy: [place], [place] Start Date: 10/16/14 Stop Date: 05/22/15 Status: Completedalbuterol 5 mg/mL (0.5%) inhalation solution 0.5 mL, Inhale, 2-3 times a day via nebulizer, 0 Refill(s) Start Date: 08/30/13 Stop Date: 10/16/14 Status: Discontinuedalbuterol CFC free 90 mcg/inh inhalation aerosol 2 puff(s), Inhale, q4hr interval, PRN for wheezing, # 8 gm, 2 Refill(s), Start Date: 03/15/15 10:00:00 [employer] OPERATOR, Pharmacy: [place], [place] Start Date: 03/15/15 Stop Date: 03/12/16 Status: Discontinuedaspirin 81 mg oral tablet 1 tab(s), Oral, Daily, 0 Refill(s) Start Date: 08/30/13 Status: Orderedatorvastatin 10 mg oral tablet 1 tab(s), Oral, Daily, # 30 tab(s), 0 Refill(s), Start Date: 01/14/16 8:37:00 [employer] Start Date: 01/14/16 Status: OrderedAtrovent HFA 17 mcg/inh inhalation aerosol 2 puff(s), Inhale, BID, Patient to use when out of town instead of nebs, # 13 gm , 0 Refill(s) Start Date: 08/30/13 Stop Date: 12/05/14 Status: CompletedAtrovent HFA 17 mcg/inh inhalation aerosol 2 puff(s), Inhale, BID, # 13 gm, 0 Refill(s), Start Date: 05/22/15 12:51:00 CDT , other reason (Rx) Start Date: 05/22/15 Stop Date: 03/04/16 Status: DiscontinuedAyr Saline 0.65% nasal solution 1 spray(s), Nasal, q4hr, PRN as needed for dry nasal passages, # 1 EA, 1 Refill( s), Start Date: 03/04/16 8:44:00 [employer] OPERATOR, Pharmacy: [facility] Start Date: 03/04/16 Status: OrderedBrovana 15 mcg/2 mL inhalation solution 2 mL, NEB, BID, COPD 496, # 120 mL, 4 Refill(s), Start Date: 01/18/14 10:44:26 [employer] OPERATOR, Pharmacy: [place], [place] Start Date: 01/18/14 Stop Date: 08/01/14 Status: CompletedBrovana 15 mcg/2 mL inhalation solution 2 mL, NEB, BID, COPD 496, # 120 mL, 5 Refill(s), Start Date: 10/16/14 16:02:06 CDT, Pharmacy: [facility] Start Date: 10/16/14 Stop Date: 05/22/15 Status: CompletedBrovana 15 mcg/2 mL inhalation solution 2 mL, NEB, BID, COPD 496, # 120 mL, 4 Refill(s), Start Date: 08/30/13 11:13:00 CDT, Pharmacy: [facility] Start Date: 08/30/13 Stop Date: 01/18/14 Status: CompletedBrovana 15 mcg/2 mL inhalation solution 2 mL, NEB, BID, COPD 496, X 30 days, # 120 mL, 3 Refill(s), Start Date: 10:01:49 CDT, Pharmacy: [facility] Start Date: 08/01/14 Stop Date: 10/16/14 Status: CompletedBrovana 15 mcg/2 mL inhalation solution 1 EA, NEB, BID, 0 Refill(s) Start Date: 08/30/13 Stop Date: 08/30/13 Status: Completedbudesonide 0.5 mg/2 mL inhalation suspension 2 mL, NEB, BID, COPD 496 Rinse mouth after, X 30 days, # 120 mL, 4 Refill(s), Start Date: 01/18/14 10:44:25 [employer] OPERATOR, Pharmacy: [facility] Start Date: 01/18/14 Stop Date: 07/24/14 Status: Completedbudesonide 0.5 mg/2 mL inhalation suspension 2 mL, NEB, BID, COPD 496 Rinse mouth after, X 30 days, # 120 mL, 4 Refill(s), Start Date: 07/24/14 8:51:04 CDT, Pharmacy: [place], [place] Start Date: 07/24/14 Stop Date: 10/16/14 Status: Completedbudesonide 0.5 mg/2 mL inhalation suspension 2 mL, NEB, BID, COPD 496 Rinse mouth after, # 120 mL, 4 Refill(s), Start Date: 08/30/13 11:13:00 CDT, Pharmacy: [facility] Start Date: 08/30/13 Stop Date: 01/18/14 Status: Completedbudesonide 0.5 mg/2 mL inhalation suspension 2 mL, NEB, BID, Rinse mouth after use, 0 Refill(s) Start Date: 08/30/13 Stop Date: 08/30/13 Status: Completedbudesonide 0.5 mg/2 mL inhalation suspension 2 mL, NEB, BID, COPD 496 Rinse mouth after, # 120 mL, 4 Refill(s), Start Date: 10/16/14 16:04:24 CDT, Pharmacy: [place], [place] Start Date: 10/16/14 Stop Date: 05/22/15 Status: Completedcalcium (as carbonate) 500 mg oral tablet, chewable 0 Refill(s) Start Date: 08/30/13 Stop Date: 02/16/16 Status: CompletedCalcium 600+D See Instructions, Oral, 0 Refill(s), Start Date: 03/28/16 7:44:00 [employer] Start Date: 03/28/16 Status: OrderedCarafate 1 g oral tablet 1 tab(s), Oral, QID, # 120 tab(s), 0 Refill(s), Start Date: 04/06/15 9:47:00 [employer] OPERATOR , Pharmacy: [place], [place] Start Date: 04/06/15 Stop Date: 05/15/15 Status: Discontinuedclopidogrel 75 mg oral tablet tab(s), Oral, Daily, 0 Refill(s) Start Date: 08/30/13 Stop Date: 12/05/14 Status: Completedcolchicine 0.6 mg oral capsule 1 cap(s), Oral, BID, # 60 cap(s), 0 Refill(s), Start Date: 12/05/14 15:30:00 CDT , Pharmacy: [place], [place] Start Date: 12/05/14 Stop Date: 12/11/14 Status: CompletedCT Oral Prep See Instructions, as directed, # 2 bottles, 0 Refill(s), Start Date: 02/08/15 15 :38:00 [employer] Start Date: 02/08/15 Stop Date: 04/04/15 Status: CompletedDexilant 60 mg oral delayed release capsule 1 cap(s), Oral, Daily, # 30 cap(s), 1 Refill(s), Start Date: 04/11/15 12:14:00 [employer]PERATOR, Pharmacy: [place], [place] Start Date: 04/11/15 Stop Date: 02/16/16 Status: Completeddoxycycline monohydrate 100 mg oral tablet 1 tab(s), Oral, Daily, # 7 tab(s), 0 Refill(s), Start Date: 02/19/16 15:26:00 E[employer]PERATOR, Pharmacy: [place], [place] Start Date: 02/19/16 Stop Date: 02/29/16 Status: Completedfexofenadine 180 mg oral tablet 1 tab(s), Oral, Daily, 0 Refill(s) Start Date: 08/30/13 Stop Date: 08/30/13 Status: CompletedFlomax 0.4 mg oral capsule 1 cap(s), Oral, HS, # 30 cap(s), 11 Refill(s), Start Date: 01/18/16 10:09:00 E[employer] OPERATOR , Pharmacy: [place], [place] Start Date: 01/18/16 Status: OrderedFosamax Fosamax, 0 Refill(s), Supply Start Date: 11/22/13 Stop Date: 06/06/14 Status: DiscontinuedGinkgo Biloba 60 mg=, Oral, BID, 0 Refill(s) Start Date: 08/30/13 Stop Date: 12/05/14 Status: CompletedGoLYTELY oral powder for reconstitution 240 mL, Oral, q15min, X 16 dose(s), # 4,000 mL, 0 Refill(s), Start Date: 11:11:00 CDT, Pharmacy: [facility] Start Date: 12/12/14 Stop Date: 04/04/15 Status: CompletedGoLYTELY oral powder for reconstitution 240 mL, Oral, q15min, X 16 dose(s), # 4,000 mL, 0 Refill(s), Start Date: 16:33:00 ELECT[employer]IC [employer] OPERATOR, Pharmacy: [facility] Start Date: 02/12/15 Stop Date: 04/04/15 Status: Completedipratropium 500 mcg/2.5 mL inhalation solution 2.5 mL, NEB, BID, COPD J44.9, # 150 mL, 11 Refill(s), Start Date: 03/04/16 8:40: 58 E[employer]IC [employer]IVE [employer] OPERATOR, Pharmacy: [facility] Start Date: 03/04/16 Stop Date: 02/27/17 Status: Orderedipratropium 500 mcg/2.5 mL inhalation solution 2.5 mL, NEB, BID, COPD 496, # 150 mL, 4 Refill(s), Start Date: 01/18/14 10:44: 27 E[employer]IC [employer]IVE [employer] OPERATOR, Pharmacy: [facility] Start Date: 01/18/14 Stop Date: 03/06/14 Status: Completedipratropium 500 mcg/2.5 mL inhalation solution 2.5 mL, NEB, BID, COPD 496, # 150 mL, 4 Refill(s), Start Date: 08/30/13 11:14: 00 CDT, Pharmacy: [facility] Start Date: 08/30/13 Stop Date: 01/18/14 Status: Completedipratropium 500 mcg/2.5 mL inhalation solution 2.5 mL, NEB, BID, COPD 496, X 30 days, # 150 mL, 5 Refill(s), Start Date: 16:00:56 CDT, Pharmacy: [facility] Start Date: 10/16/14 Stop Date: 07/02/15 Status: Completedipratropium 500 mcg/2.5 mL inhalation solution inhale 1 vial 2 times daily, 0 Refill(s) Start Date: 08/30/13 Stop Date: 08/30/13 Status: Completedipratropium 500 mcg/2.5 mL inhalation solution 2.5 mL, NEB, BID, COPD 496, X 30 days, # 150 mL, 5 Refill(s), Start Date: 12:29:17 ELECT[employer]IC [employer]IVE [employer] OPERATOR, Pharmacy: [place], [place] Start Date: 03/06/14 Stop Date: 10/16/14 Status: Completedipratropium 500 mcg/2.5 mL inhalation solution 2.5 mL, NEB, BID, COPD J44.9, X 30 days, # 150 mL, 5 Refill(s), Start Date: 10:13:57 CDT, Pharmacy: [place], [place] Start Date: 07/02/15 Stop Date: 03/04/16 Status: Completedloratadine 10 mg, Oral, Daily, 0 Refill(s), Start Date: 03/04/16 8:00:00 E[employer] OPERATOR Start Date: 03/04/16 Status: Orderedloratadine 10 mg oral tablet 1 tab(s), Oral, Daily, 0 Refill(s) Start Date: 08/30/13 Stop Date: 02/16/16 Status: CompletedLycopene Lycopene, Daily, 0 Refill(s), Supply Start Date: 11/22/13 Stop Date: 12/05/14 Status: Completedmontelukast 10 mg oral tablet 1 tab(s), Oral, qPM, # 30 tab(s), 0 Refill(s), Start Date: 01/18/16 9:19:00 E[employer] OPERATOR Start Date: 01/18/16 Stop Date: 03/04/16 Status: DiscontinuedMontelukast 10 Mg Tablet 0 Refill(s), Compound Start Date: 01/14/16 Stop Date: 02/16/16 Status: CompletedMultiple Vitamins oral tablet 1 tab(s), Oral, Daily, 0 Refill(s) Start Date: 08/30/13 Stop Date: 06/06/14 Status: DiscontinuedNasonex 2 spray(s), Nasal, Daily, 0 Refill(s) Start Date: 11/22/13 Stop Date: 06/06/14 Status: DiscontinuedNasonex 50 mcg/inh nasal spray 2 spray(s), Nasal, Daily, # 17 gm, 0 Refill(s), Start Date: 03/28/16 7:38:00 ELECT[employer]IC [employer] OPERATOR Start Date: 03/28/16 Status: OrderedNasonex 50 mcg/inh nasal spray 2 spray(s), Nasal, Daily, in each nostril, 0 Refill(s) Start Date: 08/30/13 Stop Date: 02/19/16 Status: Discontinuednitroglycerin 0.[address] 1 tablet (0.4MG) by sublingual route at the 1st sign of attack; may repeat every 5 min until relief; if pain persists after 3 tablets in 15 min, prompt medical attention is recommended, 0 Refill(s) Start Date: 08/30/13 Status: Orderedomeprazole 20 mg oral delayed release capsule 1 cap(s), Oral, BID, before a meal, 0 Refill(s) Start Date: 08/30/13 Stop Date: 05/15/15 Status: Discontinuedomeprazole 20 mg oral delayed release tablet 1 tab(s), Oral, BID, 0 Refill(s), Start Date: 03/04/16 8:00:00 E[employer]IC [employer] OPERATOR Start Date: 03/04/16 Status: Orderedpolyethylene glycol 3350 oral powder for reconstitution 17 gm=, Oral, Daily, dissolve in water before taking, # 255 gm, 0 Refill(s), Start Date: 02/29/16 12:08:00 ELECT[employer]IC [employer] OPERATOR Start Date: 02/29/16 Status: OrderedpredniSONE 10 mg oral tablet 1 tab(s), Oral, Daily, # 7 tab(s), 0 Refill(s), Start Date: 12/05/14 11:24:00 CDT, Pharmacy: [place], [place] Start Date: 12/05/14 Stop Date: 04/04/15 Status: CompletedProAir HFA 90 mcg/inh inhalation aerosol 2 puff(s), Inhale, q4hr, PRN for wheezing, # 1 boxes, 0 Refill(s), Start Date: 03/28/16 7:39:00 E[employer] OPERATOR Start Date: 03/28/16 Status: OrderedPulmicort Respules 0.5 mg/2 mL inhalation suspension 2 mL, NEB, BID, J44.9, # 120 mL, 11 Refill(s), Start Date: 03/04/16 8:41:37 ELECTRIC LOC[employer]OTIVE [employer]ANE OPERATOR , Pharmacy: [place], [place] Start Date: 03/04/16 Status: OrderedPulmicort Respules 0.5 mg/2 mL inhalation suspension 2 mL, NEB, BID, J44.9, # 120 mL, 6 Refill(s), Start Date: 02/12/15 9:01:00 ELECTRIC LOCOM[employer]IVE [employer]ANE OPERATOR, Pharmacy: [place], [place] Start Date: 02/12/15 Stop Date: 01/14/16 Status: CompletedPulmicort Respules 0.5 mg/2 mL inhalation suspension 2 mL, NEB, BID, J44.9, # 120 mL, 1 Refill(s), Start Date: 01/14/16 11:56:28 ELECTRIC LOC[employer]OTIVE [employer]ANE OPERATOR , Pharmacy: [place], [place] Start Date: 01/14/16 Stop Date: 03/04/16 Status: Completedranitidine 150 mg oral tablet 1 tab(s), Oral, HS, # 30 tab(s), 5 Refill(s), Start Date: 04/23/15 14:37:00 ELECT[employer]IC LOC[employer]IVE [employer]ANE OPERATOR , Pharmacy: [place], [place] Start Date: 04/23/15 Stop Date: 02/16/16 Status: CompletedRefresh 1 drop(s), Eye-Both, BID, 0 Refill(s), Start Date: 03/28/16 7:45:00 ELECT[employer]IC [employer] OPERATOR Start Date: 03/28/16 Status: Orderedsertraline 100 mg oral tablet tab(s), Oral, Daily, 0 Refill(s), Start Date: 04/04/15 13:25:00 ELECT[employer]IC [employer] OPERATOR Start Date: 04/04/15 Stop Date: 02/16/16 Status: Completedsimvastatin 80 mg, Oral, HS, Patient said will be starting on 09/05, 0 Refill(s), Start Date : 08/30/13 11:17:00 CDT Start Date: 08/30/13 Stop Date: 02/16/16 Status: Completedsimvastatin 80 mg, Oral, HS, 0 Refill(s), Start Date: 03/28/16 7:40:00 ELECT[employer]IC LOC[employer] OPERATOR Start Date: 03/28/16 Status: Orderedsucralfate 1 gm, Oral, QIDACHS, 0 Refill(s), Start Date: 03/28/16 7:40:00 ELECTRIC LOC[employer]IVE [employer]ANE OPERATOR Start Date: 03/28/16 Status: Orderedsulfamethoxazole-trimethoprim 800 mg-160 mg oral tablet 1 tab(s), Oral, BID, 0 Refill(s), Start Date: 03/28/16 7:42:00 ELECT[employer]IC [employer] OPERATOR Start Date: 03/28/16 Status: OrderedSymbicort 160 mcg-4.5 mcg/inh inhalation aerosol 2 puff(s), Inhale, BID, # 6 gm, 0 Refill(s), Start Date: 03/28/16 7:43:00 ELECTRIC [employer]ANE OPERATOR Start Date: 03/28/16 Status: OrderedSymbicort 160 mcg-4.5 mcg/inh inhalation aerosol 2 puff(s), Inhale, BID, To be used when patient is out of town, 0 Refill(s) Start Date: 08/30/13 Stop Date: 05/22/15 Status: CompletedSymbicort 160 mcg-4.5 mcg/inh inhalation aerosol 2 puff(s), Inhale, BID, # 6 gm, 0 Refill(s), Start Date: 05/22/15 12:50:00 CDT, other reason (Rx) Start Date: 05/22/15 Stop Date: 03/04/16 Status: DiscontinuedtraMADol 50 mg oral tablet 2 tab(s), Oral, q6hr interval, PRN as needed for pain, 0 Refill(s), Start Date: 02/29/16 12:08:00 ELECTRIC [employer]IVE [employer]ANE OPERATOR Start Date: 02/29/16 Status: OrderedVentolin HFA 90 mcg/inh inhalation aerosol 2 puff(s), Inhale, q4hr, PRN shortness of breath or wheezing, PT IS SPECIFICALLY REQUESTING VENTOLIN EVEN IF INS DOESN'T COVER IT, # 1 EA, 3 Refill(s), Start Date: 03/12/16 13:33:00 ELECTRIC LOCOMOTIVE CRANE OPERATOR, Pharmacy: [place], [place] Start Date: 03/12/16 Status: OrderedVentolin HFA 90 mcg/inh inhalation aerosol inhale 1 - 2 puff by INHALATION route 4 - 6 hours as needed, 0 Refill(s) Start Date: 08/30/13 Stop Date: 03/15/15 Status: CompletedVitamin C 0 Refill(s) Start Date: 11/22/13 Stop Date: 12/05/14 Status: CompletedVitamin C 100 mg oral tablet take 400mg daily, 0 Refill(s) Start Date: 08/30/13 Stop Date: 08/30/13 Status: CompletedVitamin D3 400 intl units oral capsule 1 cap(s), Oral, Daily, 0 Refill(s) Start Date: 08/30/13 Stop Date: 02/16/16 Status: CompletedVitamin D3 400 intl units oral tablet tab(s), Oral, BID, 0 Refill(s), Start Date: 02/16/16 11:32:00 ELECT[employer]IC [employer] OPERATOR Start Date: 02/16/16 Status: Orderedvitamin E 400 intl units oral capsule 1 cap(s), Oral, Daily, 0 Refill(s) Start Date: 08/30/13 Stop Date: 12/05/14 Status: Completed Results Patient Viewable Results Most recent to oldest 1 2 3 [Reference Range]: AN - Fi O2 96 % % 93 % % 95 % % (03/28/16 10:05 AM) (03/28/16 10:00 AM) (03/28/16 9:55 AM) WBC [4.8-10.8 thou/mm3] 6.9 thou/mm3 (03/28/16 7:22 AM) RBC [4.60-6.00 Mil/mm3] 4.48 Mil/mm3 *LOW* (03/28/16 7:22 AM) Hgb [14.0-18.0 g/dL] 12.3 g/dL *LOW* (03/28/16 7:22 AM) Hct [42.0-52.0 %] 38.5 % *LOW* (03/28/16 7:22 AM) MCV [80.0-94.0 fL] 85.9 fL (03/28/16 7:22 AM) MCH [25.0-38.0 pg/cell] 27.5 pg/cell (03/28/16 7:22 AM) MCHC [31.0-37.0 g/dL] 31.9 g/dL (03/28/16 7:22 AM) RDW [1.0-48.0 fL] 42.1 fL (03/28/16 7:22 AM) Platelet [130-400 thou/mm3] 234 thou/mm3 (1/20/17 7:22 AM) Neutrophils % Auto [50.0-75.0 72.6 % %] (03/28/16 AM) Immature Granulocyte Auto 0.1 % [0.1-2.0 %] (03/28/16: AM) Lymphocytes % Auto [15.0-41.0 18.4 % %] (03/28/16: AM) Monocytes % Auto [2.0-10.0 %] 6.8 % (03/28/16 AM) Eosinophils % Auto [0.0-6.0 1.7 % %] (03/28/16: AM) Basophil % Auto [0.0-1.0 %] 0.4 % (03/28/16 AM) Neutrophils Absolute [1.5-5.9 5.0 thou/mm3 thou/mm3] (03/28/16: AM) Immature Gran Absolute 0.01 thou/mm3 [0.01-0.03 thou/mm3] (03/28/16 AM) Lymphocytes Absolute [1.5-4.0 1.3 thou/mm3 thou/mm3] *LOW* (03/28/16 AM) Monocytes Absolute [0.0-0.9 0.5 thou/mm3 thou/mm3] (03/28/16: AM) Eosinophil Absolute [0.0-0.7 0.1 thou/mm3 thou/mm3] (03/28/16: AM) Basophil Absolute [0.0-0.2 0.0 thou/mm3 thou/mm3] (03/28/16: AM) INR [0.9-1.1 INR] 1.1 INR (03/28/16: AM) PTT [22.7-35.2 seconds] 27.3 seconds (03/28/16 AM) Sodium Lvl [135-144 mEq/L] 147 mEq/L *HI* (03/28/16 AM) Potassium Lvl [3.3-4.8 mEq/L] 4.3 mEq/L (03/28/16: AM) Chloride Lvl [98-107 mEq/L] 109 mEq/L *HI* (03/28/16 7:22 AM) Bicarbonate Lvl [22-30 28 mmol/L mmol/L] (03/28/16 7:22 AM) Anion Gap [10.0-20.0] 14.3 (03/28/16 7:22 AM) Glucose Lvl [70-108 mg/dL] 102 mg/dL (03/28/16 7:22 AM) BUN [7-21 mg/dL] 26 mg/dL *HI* (03/28/16 7:22 AM) Creatinine Lvl [0.50-1.20 0.97 mg/dL mg/dL] (03/28/16 7:22 AM) BUN/Creat Ratio 26.8 *NA* (03/28/16 7:22 AM) eGFR AA [>=60] >60 (03/28/16 7:22 AM) eGFR NOMAN [>=60] >60 (03/28/16 7:22 AM) Calcium Lvl [8.6-10.2 mg/dL] 9.5 mg/dL (03/28/16 7:22 AM) Estimated Creatinine 60.02 mL/min Clearance (03/28/16 7:42 AM) Immunizations Given and Recorded Vaccine Date Status Refusal Reason influenza virus vaccine, inactivated 12/31/15 Recorded influenza virus vaccine, inactivated 11/07/14 Recorded influenza virus vaccine, inactivated 11/21/13 Recorded influenza virus vaccine, inactivated 12/07/12 Recorded pneumococcal 23-polyvalent vaccine 09/20/13 Recorded pneumococcal 23-polyvalent vaccine 03/09/10 Recorded Procedures Procedure Date Related Diagnosis Body Site Cystolithopaxy1 02/20/16 Transurethral Resection Prostate2 02/20/16 Esophagogastroduodenoscopy3 04/06/15 AV - Aortic valve operation 07/01/13 Coronary stent 2012 Esophagogastroduodenoscopy 2011 Stent placement4 2011 Total replacement of right knee joint 2010 Arthroscopy of right knee 2010 Low back surgery for spinal stenosis 2006 Total replacement of right hip joint 2006 CE - Cataract extraction-bilat 2002 Hernia repair 2002 Hernia repair 1994 Inguinal herniorrhaphy - bilateral 1994 Lower back vertebra 1975 Left elbow nerve transplant 1971 Appendectomy 195 Colonoscopy Epidural steroid injection Multiple trigger finger surgery Orchiectomy, bilateral Procedure on back x3 Repair of trigger finger 4-5 1auto-populated from documented surgical [id number] from documented surgical [id number] from documented surgical [id number] SIDE HEART Social History No data available for this section Assessment and Plan No data available for this section
[2016-06-03] MEDS ORDERED: ASPIRIN 81 MG TAB.CHEW ONE (10:06)
[2016-06-03 10:08] LABS: Hematocrit 33.7 % (42.0-52.0); Hemoglobin 11.1 gm/dL (13.5-18.0); Mean Cell Volume 82.8 fl (78-100); Mean Corpuscular Hemoglobin 27.3 pg (27-31); Mean Corpuscular Hgb Conc 32.9 g/dl (32-36); Mean Platelet Volume 9.8 fl (6.0-9.5); Neutrophil # 3.2 K/mm3 (1.3-6.0); Neutrophil % 61.5 % (42-75.0); Platelet Count 186 K/mm3 (150-450); Red Blood Count 4.07 M/mm3 (4.7-6.0); Red Cell Distribution Width 14.4 % (11.5-14.0); White Blood Count 5.2 K/mm3 (4.0-10.5)
[2016-06-03] MEDS ORDERED: ASPIRIN 81 MG TAB.CHEW PO ONE (10:08)
--- NOTE | 2016-06-03 10:09 | ERNOTE ---
Chest Pain/Cardiac HPI Date of Service: 06/03/16 - 09:53 Chief Complaint: Chest Pain Time Seen by Provider: 06/03/16 09:53 Source: patient Exam Limitations: no limitations Immunizations: IMMUNIZATION HX Immunizations Up to Date Yes History of Influenza Vaccine Yes Hx Pneumococcal Vaccination Yes Allergies/Adverse Reactions: Allergies orange (food color) Allergy (Intermediate, Verified 06/03/16 09:46) Shortness of Breath orange flavor Allergy (Intermediate, Verified 06/03/16 09:46) Shortness of Breath colchicine [From Colcrys] Allergy (Unknown, Verified 06/03/16 09:46) promethazine HCl [From Phenergan] Allergy (Unknown, Verified 06/03/16 09:46) sertraline Allergy (Unknown, Verified 06/03/16 09:46) hydrocodone [Hydrocodone] Adverse Reaction (Mild, Verified 06/03/16 09:46) out of his head nortriptyline [Nortriptyline] Adverse Reaction (Mild, Verified 06/03/16 09:46) Headache oxycodone [Oxycodone] Adverse Reaction (Mild, Verified 06/03/16 09:46) out of his head pregabalin [From Lyrica] Adverse Reaction (Mild, Verified 06/03/16 09:46) Headache zolpidem [Zolpidem] Adverse Reaction (Mild, Verified 06/03/16 09:46) out of his head Home Medications: HOME MEDICATIONS Acetaminophen 650 mg PO Q4H PRN 06/03/16 [Last Taken Unknown] Albuterol Sulfate [Proair Respiclick] 90 mcg IH Q4H PRN 06/03/16 [Last Taken Unknown] Aspirin [Aspirin EC] 81 mg PO DAILY 06/03/16 [Last Taken Unknown] Atorvastatin Calcium 10 mg PO HS 06/03/16 [Last Taken Unknown] Budesonide [Pulmicort Respules] 2 ml IH BID 06/03/16 [Last Taken Unknown] Cholecalciferol (Vitamin D3) [Vitamin D3] 1,000 unit PO DAILY 06/03/16 [Last Taken Unknown] Ipratropium [place] 0.2 mg IH BID 06/03/16 [Last Taken Unknown] Lidocaine [Lidoderm 5%] 1 patch TP DAILY 06/03/16 [Last Taken Unknown] Mirtazapine [Mirtazapine (Remeron)] 15 mg PO HS 06/03/16 [Last Taken Unknown] Mirtazapine [Mirtazapine (Remeron)] 15 mg PO HS 06/03/16 [Last Taken Unknown] Ondansetron [Zofran Odt] 4 mg PO Q6H PRN 06/03/16 [Last Taken Unknown] Polyethylene Glycol 3350 [Miralax] 17 gm PO DAILY 06/03/16 [Last Taken Unknown] Tamsulosin HCl [Flomax] 0.4 mg PO 1700 06/03/16 [Last Taken Unknown] traMADol HCL [Ultram] 100 mg PO Q6H PRN 06/03/16 [Last Taken Unknown] Narrative: Presents with left-sided chest pain onset approximately 12 hours ago. Describes the pain as achy in nature although it is reproducible with palpation. Timing: other - improving Severity/Quality: moderate Location: left chest Chest Pain Radiation: other - left elbow last night Activities at Onset: rest Modifying Factors - Improves: Present: nitroglycerin Nitro Today/Relief: 0.4 mg x 2, provided at home Aspirin Treatment Today: 81 mg x 3 Associated Symptoms: Present: denies symptoms Prior Chest Pain/Cardiac Workup: Reports: non-cardiac Prior Treatment: Reports: recently seen Review of Systems - Review of Systems Constitutional: Present: See HPI EYE: Present: no symptoms reported ENT: Present: no symptoms reported Respiratory: Present: no symptoms reported Cardiology: Present: no symptoms reported Gastrointestinal/Abdominal: Present: no symptoms reported Genitourinary: Present: no symptoms reported Musculoskeletal: Present: no symptoms reported Skin: Present: no symptoms reported Neurological: Present: no symptoms reported Endocrine: Present: no symptoms reported Hematologic/Lymphatic: Present: no symptoms reported Psych: Present: no symptoms reported - Patient's Past Medical History Patient History - Medical: Anemia, Arthritis, Chronic Pain, Dementia, GERD, Kidney stone, Other Patient History - Cardiac/Respiratory: COPD, Myocardial Infarction, Valvular Heart Disease Patient History - Cancer: Prostate Patient History - Surgical Procedures: Appendectomy, Back Surgery, Cataracts, Colonoscopy, Cardiac stent, EGD, Total Hip Replacement, Total Knee Replacement, Other Patient History - Other: None - Family History Mother Family History - Medical: , Alzheimer's Disease Family History - Cardiac/Respiratory: No pertinent hx - Social History Living Situations: spouse Abuse History: No History of abuse Psych History: No pertinent hx Does anyone smoke in the home?: No Smoking Status: Former smoker Have you smoked in the past 12 months: No Alcohol Use: rarely Drug Use: none - Immunizations Immunizations Up to Date: Yes Hx Pneumococcal Vaccination: Yes History of Influenza Vaccine: Yes Physical Exam - Physical Exam General Appearance: Present: wd/wn, mild distress Eye Exam: Normal inspection: bilateral, PERRL: bilateral Ears, Nose, Throat: Present: normal ENT inspection, H, normal pharynx Neck: Present: normal inspection, nontender Respiratory: Present: no respiratory distress, normal breath sounds, no accessory muscle use, lungs clear, chest tenderness Cardiovascular/Chest: Present: regular rate, rhythm, no murmur, normal peripheral pulses Gastrointestinal/Abdominal: Present: normal bowel sounds, nontender, nondistended, soft, no organomegaly Rectal Exam: Present: deferred Back Exam: Present: normal inspection, normal range of motion Extremity Exam: Present: normal inspection, non-tender, no edema, normal range of motion Neurological Exam: Present: alert, normal mood/affect, disoriented to time Skin Exam: Present: normal color, warm/dry Lymphatic Exam: Present: no adenopathy ED Progress - Results and Orders Patient's Lab Results:: I have reviewed the patient's lab results. - Vital Signs Patient's Vital Signs:: I have reviewed the patient's vital signs. Vital Signs: Vital Signs 06/03/16 09:39 Temperature 37.1 C Pulse Rate 76 Respiratory 19 Rate Blood Pressure 119/59 O2 Sat by Pulse 96 Oximetry - EKG EKG: NSR - X-Ray X-Ray #1 X-Ray: chest Interpretation: Reviewed by me - Progress/Reassessment Chief Complaint: Chest Pain Progress:: Unchanged Plan - Plan Plan: He has had chest pain for over 12 hours now with a negative troponin and unremarkable EKG, unlikely this pain is cardiac. Pain is also reproducible in nature. I suspect simple chest wall pain as well as underlying dementia as a part of the overall process. Departure - Departure Clinical Impression: Chest wall pain Disposition: Home self-care Condition: Good Instructions: Chest Wall Pain, [id number] Referrals: Cricket Yi DO [Primary Care Provider] -
[2016-06-03 10:19] LABS: Prothrombin Time (Patient) 10.5 Seconds (9.4-11.4)
[2016-06-03 10:25] LABS: INR 1.01 INR (0.90-1.10); Partial Thrombolplastin Time 26.6 Seconds (24-32)
[2016-06-03 10:30] LABS: ALT 15 U/L (19-67); AST 18 U/L (0-48); Albumin * 3.4 gm/dl (3.4-5.0); Alkaline Phosphatase * 85 U/L (50-170); Anion Gap 13.5 mmol/L (6.8-13.8); BUN/Creatinine Ratio 22.9 (9.0-21.6); Bilirubin, Total 0.4 mg/dL (0.0-1.1); Blood Urea Nitrogen 24 mg/dL (6-23); Ca. Corrected For Albumin 9.2 mg/dL (8.4-10.2); Carbon Dioxide 26.1 mmol/L (24-32.6); Chloride 109 mmol/L (97-106); Glucose * 93 mg/dL (70-110); Potassium 4.6 mmol/L (3.4-4.6); Sodium 144 mmol/L (132-142); Total Protein 6.6 gm/dL (6.2-8.2)
[2016-06-03 10:31] LABS: Troponin I Less than 0.017 ng/ml (0.00-0.10)
[2016-06-03 11:49] VITALS: BP 139/55
== END 2016-06-03 12:19 | disposition home or self-care (01) ==
LOC: ER 09:33
DX: R07.89 Other chest pain (principal); G89.29 Other chronic pain; Z85.46 Personal history of malignant neoplasm of prostate

== ENCOUNTER 2016-10-17 20:47 | Emergency (ER) | payer MEDICARE, BC ==
--- NOTE | 2016-10-17 21:15 | ERNOTE ---
Medical Problem HPI - Narrative Date of Service: 10/17/16 - General Chief Complaint: General Assessment Time Seen by Provider: 10/17/16 21:00 Source: patient, family Exam Limitations: no limitations - Immun/Allergies/Home Medications Immunizations: IMMUNIZATION HX Immunizations Up to Date Yes History of Influenza Vaccine Yes Hx Pneumococcal Vaccination Yes Allergies/Adverse Reactions: Allergies orange (food color) Allergy (Intermediate, Verified 06/03/16 09:46) Shortness of Breath orange flavor Allergy (Intermediate, Verified 06/03/16 09:46) Shortness of Breath colchicine [From Colcrys] Allergy (Unknown, Verified 06/03/16 09:46) promethazine HCl [From Phenergan] Allergy (Unknown, Verified 06/03/16 09:46) sertraline Allergy (Unknown, Verified 06/03/16 09:46) hydrocodone [Hydrocodone] Adverse Reaction (Mild, Verified 06/03/16 09:46) out of his head nortriptyline [Nortriptyline] Adverse Reaction (Mild, Verified 06/03/16 09:46) Headache oxycodone [Oxycodone] Adverse Reaction (Mild, Verified 06/03/16 09:46) out of his head pregabalin [From Lyrica] Adverse Reaction (Mild, Verified 06/03/16 09:46) Headache zolpidem [Zolpidem] Adverse Reaction (Mild, Verified 06/03/16 09:46) out of his head Home Medications: HOME MEDICATIONS Acetaminophen 650 mg PO Q4H PRN 06/03/16 [Last Taken Unknown] Albuterol Sulfate [Proair Respiclick] 90 mcg IH Q4H PRN 06/03/16 [Last Taken Unknown] Aspirin [Aspirin EC] 81 mg PO DAILY 06/03/16 [Last Taken Unknown] Atorvastatin Calcium 10 mg PO HS 06/03/16 [Last Taken Unknown] Budesonide [Pulmicort Respules] 2 ml IH BID 06/03/16 [Last Taken Unknown] Cholecalciferol (Vitamin D3) [Vitamin D3] 1,000 unit PO DAILY 06/03/16 [Last Taken Unknown] Ipratropium [place] 0.2 mg IH BID 06/03/16 [Last Taken Unknown] Lidocaine [Lidoderm 5%] 1 patch TP DAILY 06/03/16 [Last Taken Unknown] Mirtazapine [Mirtazapine (Remeron)] 15 mg PO HS 06/03/16 [Last Taken Unknown] Mirtazapine [Mirtazapine (Remeron)] 15 mg PO HS 06/03/16 [Last Taken Unknown] Ondansetron [Zofran Odt] 4 mg PO Q6H PRN 06/03/16 [Last Taken Unknown] Polyethylene Glycol 3350 [Miralax] 17 gm PO DAILY 06/03/16 [Last Taken Unknown] Tamsulosin HCl [Flomax] 0.4 mg PO 1700 06/03/16 [Last Taken Unknown] traMADol HCL [Ultram] 100 mg PO Q6H PRN 06/03/16 [Last Taken Unknown] Ciprofloxacin HCl 250 mg PO BID #6 tablet 10/17/16 [Last Taken Unknown] - History of Present History Narrative: This is an 81-year-old male who comes to the emergency department in the company of his son and . The patient's son states that the patient has become increasingly emotionally labile, especially as related to emotional changes and his . This evening the patient's started becoming agitated and belligerent. This triggered the patient to become tearful, crying , inconsolable. He was not agitated or aggressive. Apparently this is a fairly standard reaction for the patient when his becomes confused. She has become increasingly confused and combative over the last several months. Timing: gone now Severity: moderate Review of Systems - Review of Systems Constitutional: Present: no symptoms reported, other - patient denies all complaints EYE: Present: no symptoms reported ENT: Present: no symptoms reported Respiratory: Present: no symptoms reported Cardiology: Present: no symptoms reported Gastrointestinal/Abdominal: Present: no symptoms reported Genitourinary: Present: no symptoms reported Musculoskeletal: Present: no symptoms reported Skin: Present: no symptoms reported Neurological: Present: no symptoms reported Endocrine: Present: no symptoms reported Hematologic/Lymphatic: Present: no symptoms reported Psych: Present: no symptoms reported All Other Systems: All systems neg except as marked - Patient's Past Medical History Patient History - Medical: Anemia, Arthritis, Chronic Pain, Dementia, GERD, Kidney stone, Other Patient History - Cardiac/Respiratory: COPD, Myocardial Infarction, Valvular Heart Disease Patient History - Cancer: Prostate Patient History - Surgical Procedures: Appendectomy, Back Surgery, Cataracts, Colonoscopy, Cardiac stent, EGD, Total Hip Replacement, Total Knee Replacement, Other Patient History - Other: None - Family History Mother Family History - Medical: , Alzheimer's Disease Family History - Cardiac/Respiratory: No pertinent hx - Social History Living Situations: assisted living Abuse History: No History of abuse Psych History: No pertinent hx Does anyone smoke in the home?: No Smoking Status: Never smoker Alcohol Use: rarely Drug Use: none - Immunizations Immunizations Up to Date: Yes Hx Pneumococcal Vaccination: Yes History of Influenza Vaccine: Yes Physical Exam - Physical Exam General Appearance: Present: wd/wn, alert, no apparent distress, other - at one point the patient did become tearful and hugged his . It is unclear as to what precipitated this Head Exam: Present: normal inspection, no evidence of injury Eye Exam: Normal inspection: bilateral, PERRL: bilateral, EOMI: bilateral Ears, Nose, Throat: Present: normal ENT inspection, normal pharynx Neck: Present: normal inspection, nontender Respiratory: Present: no respiratory distress, normal breath sounds, no accessory muscle use, lungs clear Cardiovascular/Chest: Present: regular rate, rhythm, no murmur, normal peripheral pulses Gastrointestinal/Abdominal: Present: normal bowel sounds, nontender, soft Back Exam: Present: normal inspection, normal range of motion, no CVA tenderness Extremity Exam: Present: normal inspection, non-tender, normal range of motion Neurological Exam: Present: alert, normal mood/affect, no motor/sensory deficits , disoriented to time, other - patient is not oriented to time. He is oriented to location and family members Skin Exam: Present: normal color, warm/dry Lymphatic Exam: Present: no adenopathy ED Progress - Vital Signs Vital Signs: Vital Signs 10/17/16 21:04 Temperature 36.8 C Pulse Rate 97 Respiratory 16 Rate Blood Pressure 106/60 O2 Sat by Pulse 90 Oximetry - Progress/Reassessment Chief Complaint: General Assessment Progress Note-Subjective: 10/17/16 23:32 The patient has remained calm and lucid during his stay here. I see no reason to hold him in the hospital. He is very mildly prerenal azotemia on basic labs. I will job counselor him to drink a bit more fluid. He is going to be discharged. Departure - Departure Clinical Impression: Agitation Disposition: Other health care facility Condition: Stable Instructions: Confusion Additional Instructions: As we discussed, you are a bit dehydrated. I want you to drink an extra glass of fluid each day. Estuardo family doctor and set up a follow-up appointment Return for new or worrisome symptoms Referrals: Cricket Yi DO [Primary Care Provider] - Prescriptions: Ciprofloxacin HCl 250 mg PO BID #6 tablet
[2016-10-17 21:22] LABS: Hematocrit 34.9 % (42.0-52.0); Hemoglobin 11.3 gm/dL (13.5-18.0); Mean Cell Volume 84.5 fl (78-100); Mean Corpuscular Hemoglobin 27.4 pg (27-31); Mean Corpuscular Hgb Conc 32.4 g/dl (32-36); Mean Platelet Volume 9.6 fl (6.0-9.5); Neutrophil # 3.6 K/mm3 (1.3-6.0); Neutrophil % 63.1 % (42-75.0); Platelet Count 234 K/mm3 (150-450); Red Blood Count 4.13 M/mm3 (4.7-6.0); White Blood Count 5.6 K/mm3 (4.0-10.5)
[2016-10-17 21:39] LABS: Albumin * 3.5 gm/dl (3.4-5.0); Anion Gap 15.8 mmol/L (6.8-13.8); Bilirubin, Total 0.6 mg/dL (0.0-1.1); Ca. Corrected For Albumin 9.2 mg/dL (8.4-10.2); Calcium * 9.1 mg/dL (7.9-10.9); Carbon Dioxide 25.4 mmol/L (24-32.6); Potassium 4.2 mmol/L (3.4-4.6); Total Protein 6.8 gm/dL (6.2-8.2)
[2016-10-17 22:26] LABS: Cocaine Ur Negative (NEGATIVE); Urine Barbiturate Negative (NEGATIVE); Urine Benzodiazepines Negative (NEGATIVE); Urine Opiates Negative (NEGATIVE); Urine PCP Negative (NEGATIVE); Urine THC Negative (NEGATIVE)
[2016-10-17 22:45] LABS: Urine Appearance Clear; Urine Bilirubin Negative (NEGATIVE); Urine Blood Negative /ul (NEGATIVE); Urine Color Yellow; Urine Ketone 5 mg/dL (NEGATIVE); Urine Nitrite Negative (NEGATIVE); Urine Protein 15 mg/dL (NEGATIVE); Urine RBC 0-5 /hpf (0-5); Urine Specific Gravity 1.025 SP.GR. (1.005-1.030); Urine Urobilinogen Normal (NORMAL); Urine pH 5.5 pH (5.0-7.0)
[2016-10-17 22:46] LABS: Urine Bacteria 2+; Urine Hyaline Cast TRACE /LPF; Urine Mucus Many - 3+
[2016-10-17] MEDS ORDERED: CIPROFLOXACIN HCL 250 MG TABLET PO ONE (23:00)
[2016-10-17 23:26] LABS: Methemoglobin % 0.3 % (0.41-1.15)
[2016-10-17 23:27] LABS: Carboxyhemoglobin % 1.8 % (0.5-1.5)
[2016-10-18 03:20] VITALS: BP 118/59
== END 2016-10-18 00:42 | disposition short-term general hospital (02) ==
LOC: ER 20:47
DX: R45.1 Restlessness and agitation (principal); Z87.442 Personal history of urinary calculi; Z85.46 Personal history of malignant neoplasm of prostate; Z95.5 Presence of coronary angioplasty implant and graft

== ENCOUNTER 2016-11-25 14:51 | Emergency (ER) | payer MEDICARE, BC ==
[2016-11-25 15:00] VITALS: BP 130/58
--- NOTE | 2016-11-25 15:34 | ERNOTE ---
Medical Problem HPI - General Chief Complaint: General Assessment Time Seen by Provider: 11/25/16 15:09 Source: patient, family Exam Limitations: no limitations - Immun/Allergies/Home Medications Immunizations: IMMUNIZATION HX Immunizations Up to Date Yes History of Influenza Vaccine Yes Hx Pneumococcal Vaccination Yes Allergies/Adverse Reactions: Allergies orange (food color) Allergy (Intermediate, Verified 06/03/16 09:46) Shortness of Breath orange flavor Allergy (Intermediate, Verified 06/03/16 09:46) Shortness of Breath colchicine [From Colcrys] Allergy (Unknown, Verified 06/03/16 09:46) promethazine HCl [From Phenergan] Allergy (Unknown, Verified 06/03/16 09:46) sertraline Allergy (Unknown, Verified 06/03/16 09:46) hydrocodone [Hydrocodone] Adverse Reaction (Mild, Verified 06/03/16 09:46) out of his head nortriptyline [Nortriptyline] Adverse Reaction (Mild, Verified 06/03/16 09:46) Headache oxycodone [Oxycodone] Adverse Reaction (Mild, Verified 06/03/16 09:46) out of his head pregabalin [From Lyrica] Adverse Reaction (Mild, Verified 06/03/16 09:46) Headache zolpidem [Zolpidem] Adverse Reaction (Mild, Verified 06/03/16 09:46) out of his head Home Medications: HOME MEDICATIONS Acetaminophen 650 mg PO Q4H PRN 06/03/16 [Last Taken Unknown] Albuterol Sulfate [Proair Respiclick] 90 mcg IH Q4H PRN 06/03/16 [Last Taken Unknown] Aspirin [Aspirin EC] 81 mg PO DAILY 06/03/16 [Last Taken Unknown] Atorvastatin Calcium 10 mg PO HS 06/03/16 [Last Taken Unknown] Cholecalciferol (Vitamin D3) [Vitamin D3] 1,000 unit PO DAILY 06/03/16 [Last Taken Unknown] Ipratropium [place] 0.2 mg IH BID 06/03/16 [Last Taken Unknown] Mirtazapine [Mirtazapine (Remeron)] 15 mg PO HS 06/03/16 [Last Taken Unknown] Tamsulosin HCl [Flomax] 0.4 mg PO 1700 06/03/16 [Last Taken Unknown] Donepezil HCl [Aricept] 10 mg PO HS 11/25/16 [Last Taken Unknown] Ibuprofen 400 mg PO TID #30 tablet 11/25/16 [Last Taken Unknown] Loratadine 10 mg PO DAILY 11/25/16 [Last Taken Unknown] Montelukast Sodium [Singulair] 10 mg PO HS 11/25/16 [Last Taken Unknown] clonazePAM [Klonopin] 0.5 mg PO BID PRN 11/25/16 [Last Taken Unknown] - History of Present History Narrative: Patient rolled over in bed this morning and both felt and heard a pop in his right hip and came in the emergency department to make sure it wasn't fractured or dislocated. Patient is still able to use his walker and get around reasonably with minimal pain. Timing: constant Severity: mild Review of Systems - Review of Systems Constitutional: Present: See HPI EYE: Present: no symptoms reported ENT: Present: no symptoms reported Respiratory: Present: no symptoms reported Cardiology: Present: no symptoms reported Gastrointestinal/Abdominal: Present: no symptoms reported Genitourinary: Present: no symptoms reported Musculoskeletal: Present: See HPI Skin: Present: no symptoms reported Neurological: Present: no symptoms reported Endocrine: Present: no symptoms reported Hematologic/Lymphatic: Present: no symptoms reported Psych: Present: no symptoms reported - Patient's Past Medical History Patient History - Medical: Anemia, Arthritis, Chronic Pain, Dementia, GERD, Kidney stone, Other Patient History - Cardiac/Respiratory: COPD, Myocardial Infarction, Valvular Heart Disease Patient History - Cancer: Prostate Patient History - Surgical Procedures: Appendectomy, Back Surgery, Cataracts, Colonoscopy, Cardiac stent, EGD, Total Hip Replacement, Total Knee Replacement, Other Patient History - Other: None - Family History Mother Family History - Medical: , Alzheimer's Disease Family History - Cardiac/Respiratory: No pertinent hx - Social History Living Situations: home Abuse History: No History of abuse Psych History: No pertinent hx Does anyone smoke in the home?: No Smoking Status: Smoker, status unknown Alcohol Use: rarely Drug Use: none - Immunizations Immunizations Up to Date: Yes Hx Pneumococcal Vaccination: Yes History of Influenza Vaccine: Yes Physical Exam - Physical Exam General Appearance: Present: wd/wn, alert, mild distress Eye Exam: Normal inspection: bilateral, PERRL: bilateral Ears, Nose, Throat: Present: normal ENT inspection, H, normal pharynx Neck: Present: normal inspection, nontender Respiratory: Present: no respiratory distress, normal breath sounds, no accessory muscle use, chest nontender, lungs clear Cardiovascular/Chest: Present: regular rate, rhythm, no murmur, normal peripheral pulses Gastrointestinal/Abdominal: Present: normal bowel sounds, nontender, nondistended, soft, no organomegaly Rectal Exam: Present: deferred Back Exam: Present: normal inspection, normal range of motion Extremity Exam: Present: normal inspection, normal range of motion, no edema, other - tenderness to palpation at the right hip joint and down the IT band Neurological Exam: Present: alert, oriented, normal mood/affect Skin Exam: Present: normal color, warm/dry Lymphatic Exam: Present: no adenopathy ED Progress - Vital Signs Patient's Vital Signs:: I have reviewed the patient's vital signs. Vital Signs: Vital Signs 11/25/16 14:55 Temperature 37.0 C Pulse Rate 66 Respiratory 18 Rate Blood Pressure 130/58 O2 Sat by Pulse 93 Oximetry - X-Ray X-Ray #1 X-Ray: hip Interpretation: Reviewed by me - Progress/Reassessment Chief Complaint: General Assessment Plan - Plan Plan: Patient appears to have a muscle strain around the right hip including the IT band and the gluteus minimus. She'll be started on low-dose ibuprofen and follow-up with his family physician as needed. Given the patient's early renal insufficiency we will start with ibuprofen 400 mg 3 times a day Departure - Departure Clinical Impression: Hip strain Qualifiers: Encounter type: initial encounter Laterality: right Qualified Code(s): S76.011A - Strain of muscle, fascia and tendon of right hip, initial encounter Disposition: Other health care facility Condition: Good Instructions: Muscle Strain, [id number] Referrals: Cricket Yi DO [Primary Care Provider] - Prescriptions: Ibuprofen 400 mg PO TID #30 tablet
[2016-11-25] MEDS ORDERED: IBUPROFEN 200 MG TABLET PO ONE (15:35)
== END 2016-11-25 15:57 | disposition home or self-care (01) ==
LOC: ER 14:51
DX: S76.011A Strain of muscle, fascia and tendon of right hip, initial encounter (principal); Z87.442 Personal history of urinary calculi; I25.2 Old myocardial infarction; Z85.46 Personal history of malignant neoplasm of prostate; F03.90 Unspecified dementia, unspecified severity, without behavioral disturbance, psychotic disturbance, mood disturbance, and anxiety; J44.9 Chronic obstructive pulmonary disease, unspecified; Z95.5 Presence of coronary angioplasty implant and graft; X50.1XXA Overexertion from prolonged static or awkward postures, initial encounter

== ENCOUNTER 2016-12-31 15:40 | Emergency (ER) | payer MEDICARE, BC ==
[2016-12-31] MEDS ORDERED: ALBUTEROL SULFATE/IPRATROPIUM 3 ML NEBU IH ONE ×3 (15:57→16:26)
[2016-12-31 16:09] LABS: Hematocrit 35.8 % (42.0-52.0); Hemoglobin 11.6 gm/dL (13.5-18.0); Mean Cell Volume 87.3 fl (78-100); Mean Corpuscular Hemoglobin 28.3 pg (27-31); Mean Corpuscular Hgb Conc 32.4 g/dl (32-36); Mean Platelet Volume 10.1 fl (6.0-9.5); Neutrophil # 4.1 K/mm3 (1.3-6.0); Neutrophil % 72.7 % (42-75.0); Platelet Count 185 K/mm3 (150-450); Red Cell Distribution Width 13.9 % (11.5-14.0); White Blood Count 5.6 K/mm3 (4.0-10.5)
[2016-12-31 16:27] LABS: ALT 17 U/L (19-67); AST 20 U/L (0-48); Albumin * 3.6 gm/dl (3.4-5.0); Alkaline Phosphatase * 101 U/L (50-170); Anion Gap 10.1 mmol/L (6.8-13.8); BUN/Creatinine Ratio 19.5 (9.0-21.6); Bilirubin, Total 0.4 mg/dL (0.0-1.1); Blood Urea Nitrogen 26 mg/dL (6-23); Ca. Corrected For Albumin 8.9 mg/dL (8.4-10.2); Calcium * 8.9 mg/dL (7.9-10.9); Carbon Dioxide 31.5 mmol/L (24-32.6); Chloride 107 mmol/L (97-106); Glucose * 109 mg/dL (70-110); Potassium 4.6 mmol/L (3.4-4.6); Sodium 144 mmol/L (132-142)
[2016-12-31 16:28] LABS: Troponin I Less than 0.017 ng/ml (0.00-0.10)
[2016-12-31] MEDS ORDERED: predniSONE 20 MG TABLET PO ONE (17:56)
[2016-12-31] MEDS ORDERED: DOXYCYCLINE HYCLATE 100 MG TABLET PO ONE (17:57)
[2016-12-31] MEDS ORDERED: AMOX TR/POTASSIUM CLAVULANATE 875 MG TABLET PO ONE (17:59)
[2016-12-31] MEDS ORDERED: AMOX TR/POTASSIUM CLAVULANATE 875 MG TABLET ONE (18:05)
[2016-12-31] MEDS ORDERED: predniSONE 20 MG TABLET ONE (18:05)
[2016-12-31 18:15] VITALS: BP 117/63
--- NOTE | 2016-12-31 18:15 | ERNOTE ---
Date of Service: 12/31/16 Time Seen by Provider: 12/31/16 15:44 Stated Complaint: SORE THROAT Presenting Symptoms:: cough Source: patient Exam Limitations: no limitations Immunizations: IMMUNIZATION HX Immunizations Up to Date Yes History of Influenza Vaccine Yes Hx Pneumococcal Vaccination Yes Allergies/Adverse Reactions: Allergies orange (food color) Allergy (Intermediate, Verified 12/31/16 16:07) Shortness of Breath orange flavor Allergy (Intermediate, Verified 12/31/16 16:07) Shortness of Breath colchicine [From Colcrys] Allergy (Unknown, Verified 12/31/16 16:07) promethazine HCl [From Phenergan] Allergy (Unknown, Verified 12/31/16 16:07) sertraline Allergy (Unknown, Verified 12/31/16 16:07) hydrocodone [Hydrocodone] Adverse Reaction (Mild, Verified 12/31/16 16:07) out of his head nortriptyline [Nortriptyline] Adverse Reaction (Mild, Verified 12/31/16 16:07) Headache oxycodone [Oxycodone] Adverse Reaction (Mild, Verified 12/31/16 16:07) out of his head pregabalin [From Lyrica] Adverse Reaction (Mild, Verified 12/31/16 16:07) Headache zolpidem [Zolpidem] Adverse Reaction (Mild, Verified 12/31/16 16:07) out of his head Home Medications: HOME MEDICATIONS Acetaminophen 650 mg PO Q4H PRN 06/03/16 [Last Taken Unknown] Albuterol Sulfate [Proair Respiclick] 90 mcg IH Q4H PRN 06/03/16 [Last Taken Unknown] Aspirin [Aspirin EC] 81 mg PO DAILY 06/03/16 [Last Taken Unknown] Atorvastatin Calcium 10 mg PO HS 06/03/16 [Last Taken Unknown] Cholecalciferol (Vitamin D3) [Vitamin D3] 1,000 unit PO DAILY 06/03/16 [Last Taken Unknown] Ipratropium [place] 0.2 mg IH BID 06/03/16 [Last Taken Unknown] Mirtazapine [Mirtazapine (Remeron)] 15 mg PO HS 06/03/16 [Last Taken Unknown] Tamsulosin HCl [Flomax] 0.4 mg PO 1700 06/03/16 [Last Taken Unknown] Donepezil HCl [Aricept] 10 mg PO HS 11/25/16 [Last Taken Unknown] Ibuprofen 400 mg PO TID #30 tablet 11/25/16 [Last Taken Unknown] Loratadine 10 mg PO DAILY 11/25/16 [Last Taken Unknown] Montelukast Sodium [Singulair] 10 mg PO HS 11/25/16 [Last Taken Unknown] clonazePAM [Klonopin] 0.5 mg PO BID PRN 11/25/16 [Last Taken Unknown] Amox Tr/Potassium Clavulanate [Augmentin 875-125 Tablet] 875 mg PO Q12H #20 tab 12/31/16 [Last Taken Unknown] predniSONE [Prednisone] 2 tab PO DAILY #8 tab 12/31/16 [Last Taken Unknown] - History of Present Ilness Narrative: Patient presents to the emergency department with "a head cold". He relates that he has been feeling sick for a few days with "a pre-cold". He has been coughing. Bringing up sputum with unknown color but thick consistency. no fever. mild ST yesterday but no ST today. He relates that he was bringing up so much phlegm today that he chocked and felt SOB. Nasal congestion with this. no CP. Right now not feeling SOB. No abdominal pain. He walks to the room here with a walker and states he is not SOB after walking but is having occasional deep cough. Timing: intermittent Frequency/Possible Cause: Denies: illness exposure Modifying Factors - Improves: Reports: coughing Modifying Factors - Worsens: Reports: nothing Associated Symptoms: Reports: cough, nasal congestion, nasal drainage. Denies: chest pain/soreness, headache, fever/chills Prior Treatment: Denies: recently seen Review of Systems - Review of Systems Constitutional: Absent: fever ENT: Present: nose congestion Respiratory: Present: cough Cardiology: Absent: chest pain Gastrointestinal/Abdominal: Absent: abdominal pain Skin: Absent: rash Neurological: Absent: weakness - Patient's Past Medical History Patient History - Medical: Anemia, Arthritis, Chronic Pain, Dementia, GERD, Kidney stone, Other Patient History - Cardiac/Respiratory: COPD, Myocardial Infarction, Valvular Heart Disease Patient History - Cancer: Prostate Patient History - Surgical Procedures: Appendectomy, Back Surgery, Cataracts, Colonoscopy, Cardiac stent, EGD, Total Hip Replacement, Total Knee Replacement, Other Patient History - Other: None - Family History Mother Family History - Medical: , Alzheimer's Disease Family History - Cardiac/Respiratory: No pertinent hx - Social History Living Situations: assisted living Abuse History: No History of abuse Psych History: No pertinent hx Smoking Status: Former smoker - Immunizations Immunizations Up to Date: Yes Hx Pneumococcal Vaccination: Yes History of Influenza Vaccine: Yes Physical Exam - Physical Exam General Appearance: Present: alert, no apparent distress, other - speaks in full sentences. No distress. Occasional deep, productive cough. Eye Exam: Normal inspection: bilateral, PERRL: bilateral Ears, Nose, Throat: Present: normal ENT inspection, nasal congestion. Absent: pharyngeal erythema, pharyngeal swelling, tonsillar swelling, dry mucous membranes Neck: Present: normal inspection Respiratory: Present: no respiratory distress, chest nontender, other - few faint wheezes in the bases bilateerally with deep breathing. no distress. Cardiovascular/Chest: Present: regular rate, rhythm Gastrointestinal/Abdominal: Present: normal bowel sounds, nontender, nondistended, soft Back Exam: Absent: CVA tenderness (R), CVA tenderness (L) Extremity Exam: Present: normal inspection, no edema Neurological Exam: Present: alert, normal mood/affect, no motor/sensory deficits. Absent: motor weakness Skin Exam: Present: normal color, warm/dry ED Progress - Results and Orders Patient's Lab Results:: I have reviewed the patient's lab results. - Vital Signs Patient's Vital Signs:: I have reviewed the patient's vital signs. Vital Signs: Vital Signs 12/31/16 12/31/16 12/31/16 15:54 16:08 16:33 Temperature 36.7 C Pulse Rate 96 94 94 Respiratory 14 14 14 Rate Blood Pressure 142/63 129/61 O2 Sat by Pulse 93 93 93 Oximetry 12/31/16 12/31/16 12/31/16 16:40 16:42 17:00 Temperature Pulse Rate 92 92 90 Respiratory 14 14 14 Rate Blood Pressure 127/64 127/64 O2 Sat by Pulse 92 92 Oximetry 12/31/16 12/31/16 17:30 17:56 Temperature Pulse Rate 94 93 Respiratory 16 14 Rate Blood Pressure 137/72 137/72 O2 Sat by Pulse 92 92 Oximetry - EKG EKG: NSR EKG read: Interp. by me EKG Comments: NSR rate 78. Non-specific changes, no STEMI ' - X-Ray X-Ray #1 X-Ray: chest Interpretation: Interp. by me X-ray Comments: No real time radiology reads at this time. Mild haziness right mid-lung, will cover with ABx pending official radiology read, no clear lobar consolidation. - Progress/Reassessment Chief Complaint: Upper Respiratory Symptoms Progress Note-Subjective: 12/31/16 18:07 No wheeze after neb treatment. Given steroid with Hx COPD and wheeze, resolved. He is in no distress. He walked with the walker and did not desat below 92% on RA. i offered him admission for observation given his age and COPD Hx but he declines this. He feels like he would like to go home. he understands risks and benefits of this approach. I discussed warning signs and reasons to return as well as the need for close f/u. Cover with ABx given the questionable CXR finding and COPD Hx with steroid burst and inhaler with close f /u.. Departure Clinical Impression: Cough, Bronchitis - Departure Disposition: Home self-care Condition: Stable Instructions: Acute Bronchitis, [id number] Additional Instructions: Rest. Medications as directed. Follow-up with your doctor within 3 days for a re-check. Return if you change your mind about being observed in the hospital, if you develop increased trouble breathing, fever or if your condition worsens or changes in any way. Use your inhaler as directed. Prescriptions: Amox Tr/Potassium Clavulanate [Augmentin 875-125 Tablet] 875 mg PO Q12H #20 tab predniSONE [Prednisone] 2 tab PO DAILY #8 tab
== END 2016-12-31 18:20 | disposition home or self-care (01) ==
LOC: ER 15:40
DX: J40 Bronchitis, not specified as acute or chronic (principal); R05 Cough; Z85.46 Personal history of malignant neoplasm of prostate

== ENCOUNTER 2017-01-15 17:47 | Observation (INO) | payer MEDICARE, BC ==
[2017-01-15] MEDS ORDERED: predniSONE 20 MG TABLET PO ONE (18:07)
[2017-01-15] MEDS ORDERED: ALBUTEROL SULFATE/IPRATROPIUM 3 ML NEBU IH ONE ×2 (18:07→18:08)
[2017-01-15] MEDS ORDERED: predniSONE 20 MG TABLET ONE (18:08)
--- NOTE | 2017-01-15 18:11 | ERNOTE ---
Dyspnea - General Presenting Symptoms: shortness of breath Time Seen by Provider: 01/15/17 17:55 Source: patient, family Exam Limitations: no limitations - Immun/Allergies/Home Medications Immunizations: IMMUNIZATION HX Immunizations Up to Date Yes History of Influenza Vaccine Yes Hx Pneumococcal Vaccination Yes Allergies/Adverse Reactions: Allergies orange (food color) Allergy (Intermediate, Verified 01/15/17 17:58) Shortness of Breath orange flavor Allergy (Intermediate, Verified 01/15/17 17:58) Shortness of Breath colchicine [From Colcrys] Allergy (Unknown, Verified 01/15/17 17:58) promethazine HCl [From Phenergan] Allergy (Unknown, Verified 01/15/17 17:58) sertraline Allergy (Unknown, Verified 01/15/17 17:58) hydrocodone [Hydrocodone] Adverse Reaction (Mild, Verified 01/15/17 17:58) out of his head nortriptyline [Nortriptyline] Adverse Reaction (Mild, Verified 01/15/17 17:58) Headache oxycodone [Oxycodone] Adverse Reaction (Mild, Verified 01/15/17 17:58) out of his head pregabalin [From Lyrica] Adverse Reaction (Mild, Verified 01/15/17 17:58) Headache zolpidem [Zolpidem] Adverse Reaction (Mild, Verified 01/15/17 17:58) out of his head Home Medications: HOME MEDICATIONS Acetaminophen 650 mg PO Q4H PRN 06/03/16 [Last Taken Unknown] Albuterol Sulfate [Proair Respiclick] 90 mcg IH Q4H PRN 06/03/16 [Last Taken Unknown] Aspirin [Aspirin EC] 81 mg PO DAILY 06/03/16 [Last Taken Unknown] Atorvastatin Calcium 10 mg PO HS 06/03/16 [Last Taken Unknown] Cholecalciferol (Vitamin D3) [Vitamin D3] 1,000 unit PO DAILY 06/03/16 [Last Taken Unknown] Ipratropium [place] 0.2 mg IH BID 06/03/16 [Last Taken Unknown] Mirtazapine [Mirtazapine (Remeron)] 15 mg PO HS 06/03/16 [Last Taken Unknown] Tamsulosin HCl [Flomax] 0.4 mg PO 1700 06/03/16 [Last Taken Unknown] Donepezil HCl [Aricept] 10 mg PO HS 11/25/16 [Last Taken Unknown] Ibuprofen 400 mg PO TID #30 tablet 11/25/16 [Last Taken Unknown] Loratadine 10 mg PO DAILY 11/25/16 [Last Taken Unknown] clonazePAM [Klonopin] 0.5 mg PO BID PRN 11/25/16 [Last Taken Unknown] - History of Present Illness Narrative: Patient presents with about 3 or 4 days of shortness of breath, cough with yellow sputum and apparently mildly low oxygen level. He rates the difficulty as mild to moderate in severity, but it appears to be getting worse. Severity: mild, moderate Initiating event: Reports: upper resp illness Frequency of episodes: Reports: occassional episodes Modifying Factors - (Improves): Reports: oxygen Modifying Factors (Worsens): Reports: activity Review of Systems - Review of Systems Constitutional: Present: See HPI EYE: Present: no symptoms reported ENT: Present: no symptoms reported Respiratory: Present: shortness of breath, cough, wheezing Cardiology: Present: no symptoms reported Gastrointestinal/Abdominal: Present: no symptoms reported Genitourinary: Present: no symptoms reported Musculoskeletal: Present: no symptoms reported Skin: Present: no symptoms reported Neurological: Present: no symptoms reported Endocrine: Present: no symptoms reported Hematologic/Lymphatic: Present: no symptoms reported Psych: Present: no symptoms reported - Patient's Past Medical History Patient History - Medical: Anemia, Arthritis, Chronic Pain, Dementia, GERD, Kidney stone, Other Patient History - Cardiac/Respiratory: COPD, Myocardial Infarction, Valvular Heart Disease Patient History - Cancer: Prostate Patient History - Surgical Procedures: Appendectomy, Back Surgery, Cataracts, Colonoscopy, Cardiac stent, EGD, Total Hip Replacement, Total Knee Replacement, Other, Hernia Repair, Orthopedic Patient History - Other: None - Family History Mother Family History - Medical: , Alzheimer's Disease Family History - Cardiac/Respiratory: No pertinent hx - Social History Abuse History: No History of abuse Psych History: No pertinent hx Smoking Status: Former smoker - Immunizations Immunizations Up to Date: Yes Hx Pneumococcal Vaccination: Yes History of Influenza Vaccine: Yes Physical Exam - Physical Exam General Appearance: Present: wd/wn, moderate distress Head Exam: Present: normal inspection Eye Exam: Normal inspection: bilateral, PERRL: bilateral Ears, Nose, Throat: Present: normal ENT inspection, H, normal pharynx Neck: Present: normal inspection, nontender Respiratory: Present: no accessory muscle use, chest nontender, respiratory distress, decreased breath sounds, wheezing Cardiovascular/Chest: Present: regular rate, rhythm, no murmur, normal peripheral pulses Gastrointestinal/Abdominal: Present: normal bowel sounds, nontender, nondistended, soft, no organomegaly Rectal Exam: Present: deferred Back Exam: Present: normal inspection, normal range of motion Extremity Exam: Present: normal inspection, non-tender, no edema, normal range of motion Neurological Exam: Present: alert, normal mood/affect, other - patient appears to have at least mild cognitive defect Skin Exam: Present: normal color, warm/dry Lymphatic Exam: Present: no adenopathy ED Progress - Results and Orders Patient's Lab Results:: I have reviewed the patient's lab results. - Vital Signs Patient's Vital Signs:: I have reviewed the patient's vital signs. Vital Signs: Vital Signs 01/15/17 01/15/17 17:51 18:00 Temperature 36.7 C Pulse Rate 94 86 Respiratory 42 H Rate Blood Pressure 128/56 O2 Sat by Pulse 90 Oximetry - EKG EKG: NSR EKG read: Reviewed by me - X-Ray X-Ray #1 X-Ray: chest Interpretation: Reviewed by me - Progress/Reassessment Chief Complaint: Dyspnea Plan - Plan Plan: We will put the patient in the hospital overnight so we can give him oxygen, serial DuoNeb's and steroid treatment for his COPD Departure Clinical Impression: COPD (chronic obstructive pulmonary disease) Qualifiers: COPD type: COPD with acute exacerbation Qualified Code(s): J44.1 - Chronic obstructive pulmonary disease with (acute) exacerbation - Departure Disposition: [facility] Condition: Fair
[2017-01-15 18:15] LABS: Hematocrit 35.9 % (42.0-52.0); Hemoglobin 11.5 gm/dL (13.5-18.0); Mean Cell Volume 88.2 fl (78-100); Mean Corpuscular Hemoglobin 28.3 pg (27-31); Mean Platelet Volume 9.9 fl (6.0-9.5); Neutrophil # 3.8 K/mm3 (1.3-6.0); Neutrophil % 70.2 % (42-75.0); Platelet Count 173 K/mm3 (150-450); Red Blood Count 4.07 M/mm3 (4.7-6.0); Red Cell Distribution Width 13.7 % (11.5-14.0); White Blood Count 5.4 K/mm3 (4.0-10.5)
[2017-01-15 18:35] LABS: ALT 15 U/L (19-67); AST 17 U/L (0-48); Albumin * 3.3 gm/dl (3.4-5.0); Alkaline Phosphatase * 90 U/L (50-170); Anion Gap 11.5 mmol/L (6.8-13.8); BUN/Creatinine Ratio 24.6 (9.0-21.6); Bilirubin, Total 0.6 mg/dL (0.0-1.1); Blood Urea Nitrogen 33 mg/dL (6-23); Calcium * 8.8 mg/dL (7.9-10.9); Carbon Dioxide 29.8 mmol/L (24-32.6); Chloride 107 mmol/L (97-106); Glucose * 125 mg/dL (70-110); Magnesium 2.1 mg/dL (1.2-2.8); Potassium 4.3 mmol/L (3.4-4.6); Sodium 144 mmol/L (132-142); Total Protein 6.5 gm/dL (6.2-8.2)
[2017-01-15 18:36] LABS: Troponin I Less than 0.017 ng/ml (0.00-0.10)
[2017-01-15] MEDS ORDERED: clonazePAM 0.5 MG TABLET PO PRN (19:57)
[2017-01-15] MEDS ORDERED: ACETAMINOPHEN 325 MG TABLET PO PRN (19:57)
--- NOTE | 2017-01-15 20:05 | HP ---
Chief Complaint - Chief Complaint Date of Service: 01/15/17 Time of Service: 20:04 Chief Complaint: dyspnea History of Present Illness: 81 years old white male adm to the hospital with reports of shortness of breath. PMH significant for COPD,GERD,kidney stones, [place],aortic stenosis with valvular repair and prostate cancer. Pt stated he usually have shortness of breath but today his s/s exacerbated much more. He has inhalers at home and used them but they are almost empty and not giving him the result he anticipated. He was concerned so his brought him to the ER. He denies a cough, fever, chills, palpitation or chest pain. He was recently was treated with antbx and steriod for bronchitis out-pt.In ER he was given neb treatment and prednisone, as of current time pt stated he feels much better. plan of care discussed with pt he verbalized understanding and agrees. - Patient's Past Medical History Patient History - Medical: Anemia, Arthritis, Chronic Pain, Dementia, GERD, Kidney stone, Other Patient History - Cardiac/Respiratory: COPD, Myocardial Infarction, Valvular Heart Disease, Other - aortic stenosis, aortic regrugitation Patient History - Cancer: Prostate Patient History - Surgical Procedures: Appendectomy, Back Surgery, Cataracts, Colonoscopy, Cardiac stent, EGD, Total Hip Replacement, Total Knee Replacement, Other - kyphoplasty secondary to bulging disc, lithrotrypsie right kidney stone , Hernia Repair, Orthopedic Patient History - Other: None - Family History Mother Family History - Medical: , Alzheimer's Disease Family History - Cardiac/Respiratory: No pertinent hx - Social History Living Situations: spouse Abuse History: No History of abuse Psych History: No pertinent hx Smoking Status: Former smoker Have you smoked in the past 12 months: No Do you dip or chew tobacco: No - Immunizations Immunizations Up to Date: Yes Hx Pneumococcal Vaccination: Yes History of Influenza Vaccine: Yes Review Of Systems (GEN) - Review of Systems Generalized/Overall Review: Present: No Symptoms Reported EENTM: Present: No Symptoms Reported Respiratory: Present: Shortness of Breath Cardiac: Present: No Symptoms Reported Abdominal: Present: No Symptoms Reported Genitourinary: Present: No Symptoms Reported Musculoskeletal: Present: No Symptoms Reported Neurological: Present: No Symptoms Reported Skin: Present: No Symptoms Reported Endocrine: Present: No Symptoms Reported Immunizations: IMMUNIZATION HX Immunizations Up to Date Yes History of Influenza Vaccine Yes Hx Pneumococcal Vaccination Yes Allergies/Adverse Reactions: Allergies Allergy/AdvReac Type Severity Reaction Status Date / Time orange (food color) Allergy Intermediate Shortness Verified 01/15/17 17:58 of Breath orange flavor Allergy Intermediate Shortness Verified 01/15/17 17:58 of Breath colchicine [From Colcrys] Allergy Unknown Verified 01/15/17 17:58 promethazine HCl Allergy Unknown Verified 01/15/17 17:58 [From Phenergan] sertraline Allergy Unknown Verified 01/15/17 17:58 hydrocodone [Hydrocodone] AdvReac Mild out of his Verified 01/15/17 17:58 head nortriptyline [Nortriptyline] AdvReac Mild Headache Verified 01/15/17 17:58 oxycodone [Oxycodone] AdvReac Mild out of his Verified 01/15/17 17:58 head pregabalin [From Lyrica] AdvReac Mild Headache Verified 01/15/17 17:58 zolpidem [Zolpidem] AdvReac Mild out of his Verified 01/15/17 17:58 head Home Medications: HOME MEDICATIONS Acetaminophen 650 mg PO Q4H PRN 06/03/16 [Last Taken Unknown] Albuterol Sulfate [Proair Respiclick] 90 mcg IH Q4H PRN 06/03/16 [Last Taken Unknown] Aspirin [Aspirin EC] 81 mg PO DAILY 06/03/16 [Last Taken Unknown] Atorvastatin Calcium 10 mg PO HS 06/03/16 [Last Taken Unknown] Cholecalciferol (Vitamin D3) [Vitamin D3] 1,000 unit PO DAILY 06/03/16 [Last Taken Unknown] Ipratropium [place] 0.2 mg IH BID 06/03/16 [Last Taken Unknown] Mirtazapine [Mirtazapine (Remeron)] 15 mg PO HS 06/03/16 [Last Taken Unknown] Tamsulosin HCl [Flomax] 0.4 mg PO 1700 06/03/16 [Last Taken Unknown] Donepezil HCl [Aricept] 10 mg PO HS 11/25/16 [Last Taken Unknown] Ibuprofen 400 mg PO TID #30 tablet 11/25/16 [Last Taken Unknown] Loratadine 10 mg PO DAILY 11/25/16 [Last Taken Unknown] clonazePAM [Klonopin] 0.5 mg PO BID PRN 11/25/16 [Last Taken Unknown] Exam - Exam Vital Signs: Vital Signs - Last Taken Temp 36.7 C 01/15/17 17:51 Pulse 81 01/15/17 19:13 Resp 14 01/15/17 19:13 BP 126/72 01/15/17 19:13 Pulse Ox 94 01/15/17 19:13 Constitutional: Present: Alert, Oriented x3, Cooperative, Well developed, No distress Eye Exam: bilateral eye: normal inspection Neck: Present: full range of motion Back Exam: Present: normal inspection Breasts: Present: Exam deferred Respiratory: Present: chest non-tender, no accessory muscle use, decreased breath sounds Cardiovascular/Chest: Present: normal peripheral pulses, regular rate, rhythm, no chest tenderness Peripheral Pulses: dorsalis-pedis (R): 3+, dorsalis-pedis (L): 3+ Abdomen: Present: Normal bowel sounds, soft, nontender, nondistended /Rectal: Present: Exam deferred Extremity: Present: normal range of motion, non-tender Skin Exam: Present: normal color, warm/dry Neurologic: Present: oriented x 3 Appearance: Present: appropriate appearance Eye contact: Present: cooperative, good eye contact Thoughts: Present: normal thought pattern Diagnostic Studies: Abnormal Lab Results 01/15/17 Range/Units 19:17 pO2 65.5 L (83.0-108.0) mmHg Total CO2 26.8 H (19.0-24.0) mmol/L ABG O2 Sat (Measured) 92.7 L (94.0-98.0) % Laboratory Results WBC 5.4 K/mm3 (4.0-10.5) 01/15/17 18:05 RBC 4.07 M/mm3 (4.7-6.0) L 01/15/17 18:05 Hgb 11.5 gm/dL (13.5-18.0) L 01/15/17 18:05 Hct 35.9 % (42.0-52.0) L 01/15/17 18:05 MCV 88.2 fl (78-100) 01/15/17 18:05 MCH 28.3 pg (27-31) 01/15/17 18:05 MCHC 32.0 g/dl (32-36) 01/15/17 18:05 RDW 13.7 % (11.5-14.0) 01/15/17 18:05 Plt Count 173 K/mm3 (150-450) 01/15/17 18:05 MPV 9.9 fl (6.0-9.5) H 01/15/17 18:05 Immature Gran % (Auto) 0.20 % (0.001-0.429) 01/15/17 18:05 Immature Gran # (Auto) 0.01 K/mm3 (0.000-0.0310) 01/15/17 18:05 Neutrophils % 70.2 % (42-75.0) 01/15/17 18:05 Lymphocytes % 16.9 % (20-51) L 01/15/17 18:05 Monocytes % 7.8 % (0.0-9) 01/15/17 18:05 Eosinophils % 4.5 % (0.0-3.0) H 01/15/17 18:05 Basophils % 0.4 % (0.0-1.0) 01/15/17 18:05 Nucleated RBC % 0.0 k/mm3 (0-1) 01/15/17 18:05 Neutrophils # 3.8 K/mm3 (1.3-6.0) 01/15/17 18:05 Lymphocytes # 0.9 k/mm3 (1.5-3.5) L 01/15/17 18:05 Monocytes # 0.4 k/mm3 (0.0-1.0) 01/15/17 18:05 Eosinophils # 0.2 k/mm3 (0.0-0.7) 01/15/17 18:05 Absolute Basophils 0.0 k/mm3 (0.0-0.1) 01/15/17 18:05 pCO2 43.0 mmHg (35.0-48.0) 01/15/17 19:17 pO2 65.5 mmHg (83.0-108.0) L 01/15/17 19:17 HCO3 25.4 mmol/L (21.0-28.0) 01/15/17 19:17 Total CO2 26.8 mmol/L (19.0-24.0) H 01/15/17 19:17 Base Excess 0.3 mmol/L (-2.0-3.0) 01/15/17 19:17 ABG pH 7.39 (7.35-7.45) 01/15/17 19:17 ABG O2 Sat (Measured) 92.7 % (94.0-98.0) L 01/15/17 19:17 Sodium 144 mmol/L (132-142) H 01/15/17 18:05 Plasma Sodium 144 mmol/L (130-142) H 01/15/17 18:05 Potassium 4.3 mmol/L (3.4-4.6) 01/15/17 18:05 Chloride 107 mmol/L (97-106) H 01/15/17 18:05 Carbon Dioxide 29.8 mmol/L (24-32.6) 01/15/17 18:05 Anion Gap 11.5 mmol/L (6.8-13.8) 01/15/17 18:05 BUN 33 mg/dL (6-23) H 01/15/17 18:05 Creatinine 1.34 mg/dL (0.4-1.4) 01/15/17 18:05 Est GFR (Non-Af Amer) 54 mL/min (60-130) L 01/15/17 18:05 BUN/Creatinine Ratio 24.6 (9.0-21.6) H 01/15/17 18:05 Random Glucose 125 mg/dL (70-110) H 01/15/17 18:05 Calcium 8.8 mg/dL (7.9-10.9) 01/15/17 18:05 Calcium Adj for Albumin 9.0 mg/dL (8.4-10.2) 01/15/17 18:05 Magnesium 2.1 mg/dL (1.2-2.8) 01/15/17 18:05 Total Bilirubin 0.6 mg/dL (0.0-1.1) 01/15/17 18:05 AST 17 U/L (0-48) 01/15/17 18:05 ALT 15 U/L (19-67) L 01/15/17 18:05 Alkaline Phosphatase 90 U/L (50-170) 01/15/17 18:05 Troponin I Less than 0.017 ng/ml (0.00-0.10) 01/15/17 18:05 Total Protein 6.5 gm/dL (6.2-8.2) 01/15/17 18:05 Albumin 3.3 gm/dl (3.4-5.0) L 01/15/17 18:05 Assessment/Plan - Narrative Narrative: COPD exacerbation Continue with scheduled neb treatment, IV antbx and IV steriods. Baron sputum culture pending supplemented oxygen pt was recently treated out-pt with antbx-- will give Levaquin ABG noted CXR No acute cardiopulmonary process. Chronic stable conditions GERD CAD Constipation compression fx lumbar spine CODE STATUS: FULL with restrictions GI ppx: Pepcid VTE ppx:SCD/ambulate - Assessment/Plan (1) COPD (chronic obstructive pulmonary disease) Problem: Chronic Qualifiers: COPD type: COPD with acute exacerbation Qualified Code(s): J44.1 - Chronic obstructive pulmonary disease with (acute) exacerbation (2) Compression fracture of lumbar spine, non-traumatic Problem: Chronic Qualifiers: Encounter type: initial encounter (3) CAD (coronary artery disease) Problem: Chronic Qualifiers: Coronary Disease-Associated Artery/Lesion type: unspecified vessel or lesion type (4) Constipation, chronic Problem: Chronic (5) GERD (gastroesophageal reflux disease) Problem: Chronic
[2017-01-15] MEDS ORDERED: FLU VACC QS2017-18(6MOS UP)/PF 60 MCG/0.5 ML SYRINGE IM ONE (20:13)
[2017-01-15] MEDS ORDERED: ALBUTEROL SULFATE 2.5 MG/0.5 ML VIAL.NEB IH PRN (20:30)
[2017-01-15] MEDS ORDERED: ALBUTEROL SULFATE/IPRATROPIUM 3 ML NEBU IH PRN (20:53)
[2017-01-15] MEDS ORDERED: DONEPEZIL HCL 10 MG TABLET PO SCH (21:00)
[2017-01-15] MEDS ORDERED: MIRTAZAPINE 15 MG TABLET PO SCH (21:00)
[2017-01-15] MEDS ORDERED: ROSUVASTATIN CALCIUM 10 MG TABLET PO SCH (21:00)
[2017-01-15] MEDS: METHYLPREDNISOLONE SOD SUCC IV SCH (21:44)
[2017-01-15] MEDS: WATER FOR INJ BACTERIOSTATIC IV SCH (21:44)
[2017-01-15] MEDS ORDERED: LEVOFLOXACIN/D5W 750 MG/150 ML BAG IV SCH (22:00)
[2017-01-16] MEDS: METHYLPREDNISOLONE SOD SUCC IV SCH (03:18)
[2017-01-16] MEDS: WATER FOR INJ BACTERIOSTATIC IV SCH (03:18)
[2017-01-16 05:17] LABS: Anion Gap 9.7 mmol/L (6.8-13.8); BUN/Creatinine Ratio 25.8 (9.0-21.6); Calcium * 8.9 mg/dL (7.9-10.9); Carbon Dioxide 28.5 mmol/L (24-32.6); Estimated Creat Clear 49.7; Potassium 5.2 mmol/L (3.4-4.6)
[2017-01-16] MEDS ORDERED: METHYLPREDNISOLONE SOD SUCC 40 MG in WATER FOR INJ.,BACTERIOSTATIC 0 ML IV SCH (08:15)
[2017-01-16] MEDS ORDERED: LORATADINE 10 MG TABLET PO SCH (09:00)
[2017-01-16] MEDS ORDERED: CHOLECALCIFEROL 1,000 UNIT CAPSULE PO SCH (09:00)
[2017-01-16] MEDS ORDERED: ASPIRIN 81 MG TABLET.DR PO SCH (09:00)
[2017-01-16] MEDS ORDERED: FLU VACC QS2017-18(6MOS UP)/PF 60 MCG/0.5 ML SYRINGE IM ONE (09:00)
[2017-01-16 10:41] VITALS: BP 98/62
--- NOTE | 2017-01-16 13:27 | DS ---
(1) COPD exacerbation Problem: Acute Description of Stay: Miguel Angel was admitted with COPD exacerbation. He was started on antibiotics, breathing treatments, and steroids. It was reported that he lost his nebulizer and this likely caused his exacerbation. With treatment he improved and felt near his baseline. He was not hypoxica and feeling well for discharge. Will discharged to home and get him a prescription for a nebulizer and supplies to prevent him from having further exacerbations. Procedures Performed: none Discharge Disposition: [facility] Disposition: Home self-care Condition: Fair Discharge Activity: Activity as tolerated Discharge Diet: General/regular food Referrals: Cricket Yi DO [Primary Care Provider] - One Week Problem Oriented Discharge Instructions to Patient/Family: Chronic Obstructive Pulmonary Disease Exacerbation Additional Patient Instructions (free text): Please call medications into [facility] at discharge. They package patient' s medications. Follow up appointment with Dr. Yi on 01/22/17 at 2:00pm Prescriptions (Any new or edited meds): Albuterol Sulfate [Proair Respiclick] 90 mcg IH Q4H PRN #1 aer.pow.ba PRN Reason: Dyspnea Albuterol Sulfate/Ipratropium [Duoneb 2.5-0.5MG/3ML Soln] 3 ml IH Q4HRT PRN # 120 nebu PRN Reason: Shortness Of Breath Levofloxacin [Levaquin] 750 mg PO DAILY #7 tablet predniSONE [Prednisone] 2 tab PO DAILY #20 tab Complete Home Medications List: Complete Home Medication List: Acetaminophen 650 mg PO Q4H PRN 06/03/16 Aspirin [Aspirin EC] 81 mg PO DAILY 06/03/16 Atorvastatin Calcium 10 mg PO HS 06/03/16 Cholecalciferol (Vitamin D3) [Vitamin D3] 1,000 unit PO DAILY 06/03/16 Ipratropium [place] 0.2 mg IH BID 06/03/16 Mirtazapine [Remeron] 15 mg PO HS 06/03/16 Tamsulosin HCl [Flomax] 0.4 mg PO 1700 06/03/16 Donepezil HCl [Aricept] 10 mg PO HS 11/25/16 Ibuprofen 400 mg PO TID #30 tablet 11/25/16 Loratadine 10 mg PO DAILY 11/25/16 clonazePAM [Klonopin] 0.5 mg PO BID PRN 11/25/16 Albuterol Sulfate [Proair Respiclick] 90 mcg IH Q4H PRN #1 aer.pow.ba 01/16/17 Albuterol Sulfate/Ipratropium [Duoneb 2.5-0.5MG/3ML Soln] 3 ml IH Q4HRT PRN # 120 nebu 01/16/17 Levofloxacin [Levaquin] 750 mg PO DAILY #7 tablet 01/16/17 predniSONE [Prednisone] 2 tab PO DAILY #20 tab 01/16/17
[2017-01-16] MEDS ORDERED: TAMSULOSIN HCL 0.4 MG CAP.SR.24H PO SCH (17:00)
== END 2017-01-16 15:00 | disposition home or self-care (01) ==
LOC: ER 17:47 → MS 18:17
PROVIDERS: ADMIT Family Medicine; ATTEND Family Medicine
DX: J44.1 Chronic obstructive pulmonary disease with (acute) exacerbation (principal); G89.29 Other chronic pain; D64.9 Anemia, unspecified; F03.90 Unspecified dementia, unspecified severity, without behavioral disturbance, psychotic disturbance, mood disturbance, and anxiety; I25.10 Atherosclerotic heart disease of native coronary artery without angina pectoris; Z87.891 Personal history of nicotine dependence; M48.56XS Collapsed vertebra, not elsewhere classified, lumbar region, sequela of fracture; K59.00 Constipation, unspecified; Z68.42 Body mass index [BMI] 45.0-49.9, adult; C61 Malignant neoplasm of prostate; Z23 Encounter for immunization
CPT/HCPCS: 36415; 36600; 71020; 80048; 80053; 82803; 83735; 84484; 85025; 90471; 90686; 93005; 94640; 94760; 96365; 96375; 96376; 99284; G0378

== ENCOUNTER 2017-02-05 22:06 | Emergency (ER) | payer MEDICARE, BC ==
[2017-02-05] MEDS ORDERED: ALBUTEROL SULFATE 2.5 MG/0.5 ML VIAL.NEB IH ONE ×3 (22:26→22:38)
[2017-02-05 22:47] LABS: Hematocrit 31.3 % (42.0-52.0); Hemoglobin 9.8 gm/dL (13.5-18.0); Mean Cell Volume 89.2 fl (78-100); Mean Corpuscular Hemoglobin 27.9 pg (27-31); Mean Corpuscular Hgb Conc 31.3 g/dl (32-36); Mean Platelet Volume 10.1 fl (6.0-9.5); Neutrophil # 2.8 K/mm3 (1.3-6.0); Neutrophil % 74.6 % (42-75.0); Platelet Count 104 K/mm3 (150-450); Red Blood Count 3.51 M/mm3 (4.7-6.0); Red Cell Distribution Width 14.1 % (11.5-14.0); White Blood Count 3.7 K/mm3 (4.0-10.5)
[2017-02-05 23:09] LABS: Albumin * 2.6 gm/dl (3.4-5.0); Anion Gap 8.7 mmol/L (6.8-13.8); BUN/Creatinine Ratio 21.2 (9.0-21.6); Bilirubin, Total 0.5 mg/dL (0.0-1.1); CRP 5.6 mg/dL (0.0-0.9); Ca. Corrected For Albumin 9.2 mg/dL (8.4-10.2); Calcium * 8.4 mg/dL (7.9-10.9); Carbon Dioxide 29.5 mmol/L (24-32.6); Potassium 4.2 mmol/L (3.4-4.6); Total Protein 5.5 gm/dL (6.2-8.2)
[2017-02-05 23:15] LABS: Troponin I 0.031 ng/ml (0.00-0.10)
[2017-02-05] MEDS ORDERED: METHYLPREDNISOLONE SOD SUCC/PF 40 MG/ML VIAL IV ONE (23:53)
[2017-02-06] MEDS ORDERED: METHYLPREDNISOLONE SOD SUCC/PF 40 MG/ML VIAL ONE (00:13)
[2017-02-06] MEDS ORDERED: METHYLPREDNISOLONE SOD SUCC/PF 40 MG/ML VIAL IM ONE (00:15)
--- NOTE | 2017-02-06 00:50 | ERNOTE ---
Medical Problem HPI - Narrative Date of Service: 02/06/17 - General Chief Complaint: Fever Time Seen by Provider: 02/05/17 22:32 Source: patient, family, EMS notes reviewed Exam Limitations: no limitations - Immun/Allergies/Home Medications Immunizations: IMMUNIZATION HX Immunizations Up to Date Yes History of Influenza Vaccine Yes Hx Pneumococcal Vaccination Yes Allergies/Adverse Reactions: Allergies orange (food color) Allergy (Intermediate, Verified 01/15/17 17:58) Shortness of Breath orange flavor Allergy (Intermediate, Verified 01/15/17 17:58) Shortness of Breath colchicine [From Colcrys] Allergy (Unknown, Verified 01/15/17 17:58) promethazine HCl [From Phenergan] Allergy (Unknown, Verified 01/15/17 17:58) sertraline Allergy (Unknown, Verified 01/15/17 17:58) hydrocodone [Hydrocodone] Adverse Reaction (Mild, Verified 01/15/17 17:58) out of his head nortriptyline [Nortriptyline] Adverse Reaction (Mild, Verified 01/15/17 17:58) Headache oxycodone [Oxycodone] Adverse Reaction (Mild, Verified 01/15/17 17:58) out of his head pregabalin [From Lyrica] Adverse Reaction (Mild, Verified 01/15/17 17:58) Headache zolpidem [Zolpidem] Adverse Reaction (Mild, Verified 01/15/17 17:58) out of his head Home Medications: HOME MEDICATIONS Acetaminophen 650 mg PO Q4H PRN 06/03/16 [Last Taken Unknown] Aspirin [Aspirin EC] 81 mg PO DAILY 06/03/16 [Last Taken Unknown] Atorvastatin Calcium 10 mg PO HS 06/03/16 [Last Taken Unknown] Cholecalciferol (Vitamin D3) [Vitamin D3] 1,000 unit PO DAILY 06/03/16 [Last Taken Unknown] Ipratropium [place] 0.2 mg IH BID 06/03/16 [Last Taken Unknown] Mirtazapine [Remeron] 15 mg PO HS 06/03/16 [Last Taken Unknown] Tamsulosin HCl [Flomax] 0.4 mg PO 1700 06/03/16 [Last Taken Unknown] Donepezil HCl [Aricept] 10 mg PO HS 11/25/16 [Last Taken Unknown] Ibuprofen 400 mg PO TID #30 tablet 11/25/16 [Last Taken Unknown] Loratadine 10 mg PO DAILY 11/25/16 [Last Taken Unknown] clonazePAM [Klonopin] 0.5 mg PO BID PRN 11/25/16 [Last Taken Unknown] Albuterol Sulfate [Proair Respiclick] 90 mcg IH Q4H PRN #1 aer.pow.ba 01/16/17 [ Last Taken Unknown] Albuterol Sulfate/Ipratropium [Duoneb 2.5-0.5MG/3ML Soln] 3 ml IH Q4HRT PRN # 120 nebu 01/16/17 [Last Taken Unknown] Levofloxacin [Levaquin] 750 mg PO DAILY #7 tablet 01/16/17 [Last Taken Unknown] predniSONE [Prednisone] 2 tab PO DAILY #20 tab 01/16/17 [Last Taken Unknown] Cephalexin Monohydrate [Keflex] 500 mg PO QID #40 cap 02/06/17 [Last Taken Unknown] - History of Present History Narrative: patient sent from assisted living with c/o of fever and low saturations, patient alert with no complaints at present, Timing: resolved prior to arrival Severity: mild Modifying Factors - (Improves): Present: rest Modifying Factors - (Worsens): Present: other - nothing Review of Systems - Review of Systems Constitutional: Present: See HPI, recent illness ENT: Present: no symptoms reported Respiratory: Present: cough Cardiology: Present: no symptoms reported Gastrointestinal/Abdominal: Present: no symptoms reported Genitourinary: Present: no symptoms reported Musculoskeletal: Present: no symptoms reported Skin: Present: lesions - developing ulcer right buttock Endocrine: Present: no symptoms reported Hematologic/Lymphatic: Present: no symptoms reported Psych: Present: no symptoms reported All Other Systems: All systems neg except as marked - Patient's Past Medical History Patient History - Medical: Anemia, Arthritis, Chronic Pain, Dementia, GERD, Kidney stone, Other Patient History - Cardiac/Respiratory: COPD, Myocardial Infarction, Valvular Heart Disease, Other Patient History - Cancer: Prostate Patient History - Surgical Procedures: Appendectomy, Back Surgery, Cataracts, Colonoscopy, Cardiac stent, EGD, Total Hip Replacement, Total Knee Replacement, Other, Hernia Repair, Orthopedic Patient History - Other: None - Family History Mother Family History - Medical: , Alzheimer's Disease Family History - Cardiac/Respiratory: No pertinent hx Family History - Cancer: No pertinent family hx - Social History Living Situations: assisted living Abuse History: No History of abuse Psych History: No pertinent hx Smoking Status: Former smoker Have you smoked in the past 12 months: No Do you dip or chew tobacco: No Patient requests Smoking Cessation Consult: No Initiate information on Smoking Cessation: No Alcohol Use: none Drug Use: none - Immunizations Immunizations Up to Date: Yes Hx Pneumococcal Vaccination: Yes History of Influenza Vaccine: Yes Physical Exam - Physical Exam General Appearance: Present: no apparent distress Head Exam: Present: normal inspection Eye Exam: Normal inspection: bilateral, PERRL: bilateral, EOMI: bilateral Ears, Nose, Throat: Present: normal ENT inspection Neck: Present: normal inspection, nontender Respiratory: Present: no respiratory distress, normal breath sounds, chest nontender Cardiovascular/Chest: Present: regular rate, rhythm, normal peripheral pulses Gastrointestinal/Abdominal: Present: nontender, no organomegaly DTR: N=norm/NB=norm/brisk/A=abs/DD=dull/dimin/HC=hyperactive: Bicep (R): Normal , Bicep (L): Normal, Tricep (R): Normal, Tricep (L): Normal, Knee (R): Normal, Knee (L): Normal, Ankle (R): Normal, Ankle (L): Normal Skin Exam: Present: other - 6cm developing decubitis ulcer right buttock ED Progress - Results and Orders Patient's Lab Results:: I have reviewed the patient's lab results. - Vital Signs Patient's Vital Signs:: I have reviewed the patient's vital signs. Vital Signs: Vital Signs 02/05/17 02/05/17 22:19 22:40 Temperature 37.0 C Pulse Rate 105 H 104 H Respiratory 22 H 23 H Rate Blood Pressure 121/55 O2 Sat by Pulse 93 95 Oximetry - Progress/Reassessment Chief Complaint: Fever Progress:: Improved Departure Clinical Impression: COPD (chronic obstructive pulmonary disease), Decubitus skin ulcer - Departure Disposition: Home self-care Condition: Fair Instructions: How to Prevent Pressure Injuries Referrals: Cricket Yi DO [Primary Care Provider] - Prescriptions: Cephalexin Monohydrate [Keflex] 500 mg PO QID #40 cap
[2017-02-06 01:19] VITALS: BP 111/45
== END 2017-02-06 01:15 | disposition home or self-care (01) ==
LOC: ER 22:06
PROC: 4A033R1 Measurement of Arterial Saturation, Peripheral, Percutaneous Approach (ICD-10-PCS; principal; 2017-02-05)
DX: J44.9 Chronic obstructive pulmonary disease, unspecified (principal); L89.319 Pressure ulcer of right buttock, unspecified stage; I25.2 Old myocardial infarction; Z87.442 Personal history of urinary calculi; Z85.46 Personal history of malignant neoplasm of prostate; Z95.5 Presence of coronary angioplasty implant and graft; Z87.891 Personal history of nicotine dependence

== ENCOUNTER 2017-02-09 10:47 | Observation (INO) | payer MEDICARE, BC ==
--- NOTE | 2017-02-09 11:07 | ERNOTE ---
Dyspnea - General Presenting Symptoms: shortness of breath Time Seen by Provider: 02/09/17 10:57 Source: patient Exam Limitations: dementia - Immun/Allergies/Home Medications Immunizations: IMMUNIZATION HX Immunizations Up to Date Yes History of Influenza Vaccine Yes Hx Pneumococcal Vaccination Yes Allergies/Adverse Reactions: Allergies orange (food color) Allergy (Intermediate, Verified 02/09/17 10:58) Shortness of Breath orange flavor Allergy (Intermediate, Verified 02/09/17 10:58) Shortness of Breath colchicine [From Colcrys] Allergy (Unknown, Verified 02/09/17 10:58) promethazine HCl [From Phenergan] Allergy (Unknown, Verified 02/09/17 10:58) sertraline Allergy (Unknown, Verified 02/09/17 10:58) hydrocodone [Hydrocodone] Adverse Reaction (Mild, Verified 02/09/17 10:58) out of his head nortriptyline [Nortriptyline] Adverse Reaction (Mild, Verified 02/09/17 10:58) Headache oxycodone [Oxycodone] Adverse Reaction (Mild, Verified 02/09/17 10:58) out of his head pregabalin [From Lyrica] Adverse Reaction (Mild, Verified 02/09/17 10:58) Headache zolpidem [Zolpidem] Adverse Reaction (Mild, Verified 02/09/17 10:58) out of his head Home Medications: HOME MEDICATIONS Acetaminophen 650 mg PO Q4H PRN 06/03/16 [Last Taken Unknown] Aspirin [Aspirin EC] 81 mg PO DAILY 06/03/16 [Last Taken Unknown] Atorvastatin Calcium 10 mg PO HS 06/03/16 [Last Taken Unknown] Cholecalciferol (Vitamin D3) [Vitamin D3] 1,000 unit PO DAILY 06/03/16 [Last Taken Unknown] Ipratropium [place] 0.2 mg IH BID 06/03/16 [Last Taken Unknown] Mirtazapine [Remeron] 15 mg PO HS 06/03/16 [Last Taken Unknown] Tamsulosin HCl [Flomax] 0.4 mg PO 1700 06/03/16 [Last Taken Unknown] Donepezil HCl [Aricept] 10 mg PO HS 11/25/16 [Last Taken Unknown] Ibuprofen 400 mg PO TID #30 tablet 11/25/16 [Last Taken Unknown] Loratadine 10 mg PO DAILY 11/25/16 [Last Taken Unknown] clonazePAM [Klonopin] 0.5 mg PO BID PRN 11/25/16 [Last Taken Unknown] Albuterol Sulfate [Proair Respiclick] 90 mcg IH Q4H PRN #1 aer.pow.ba 01/16/17 [ Last Taken Unknown] Albuterol Sulfate/Ipratropium [Duoneb 2.5-0.5MG/3ML Soln] 3 ml IH Q4HRT PRN # 120 nebu 01/16/17 [Last Taken Unknown] Levofloxacin [Levaquin] 750 mg PO DAILY #7 tablet 01/16/17 [Last Taken Unknown] predniSONE [Prednisone] 2 tab PO DAILY #20 tab 01/16/17 [Last Taken Unknown] - History of Present Illness Narrative: Patient has a history of COPD. He was seen in the ER four days ago for hypoxia, which had resolved on arrival in the ER. He was treated for a decubitus ulcer with keflex. Today at the follow up appointment with his PCP he was noticed to be tachypnoic and hypoxic in the mid 80's and send to the ER. History form the patient is limited by dementia, he is not sure how long he has been short of breath, denies chest pain Initiating event: Denies: upper resp illness, out of meds Frequency of episodes: Reports: frequent episodes Modifying Factors - (Improves): Reports: rest Modifying Factors (Worsens): Reports: activity Associated Symptoms-Dyspnea: Reports: denies symptoms. Denies: fever/chills, sweating, chest pain/discomfort, cough, wheezing, dizziness, lightheadedness Prior Treatment: Reports: recently seen, previous episodes. Denies: currently on antibiotics Review of Systems - Review of Systems Constitutional: Present: recent illness. Absent: fever ENT: Absent: nose congestion, sore throat Respiratory: Present: See HPI Cardiology: Absent: chest pain Gastrointestinal/Abdominal: Absent: nausea, abdominal pain Genitourinary: Present: no symptoms reported Musculoskeletal: Present: no symptoms reported Skin: Present: no symptoms reported - Patient's Past Medical History Patient History - Medical: Anemia, Arthritis, Chronic Pain, Dementia, GERD, Kidney stone, Other Patient History - Cardiac/Respiratory: COPD, Myocardial Infarction, Valvular Heart Disease, Other Patient History - Cancer: Prostate Patient History - Surgical Procedures: Appendectomy, Back Surgery, Cataracts, Colonoscopy, Cardiac stent, EGD, Total Hip Replacement, Total Knee Replacement, Other, Hernia Repair, Orthopedic Patient History - Other: None - Family History Mother Family History - Medical: , Alzheimer's Disease Family History - Cardiac/Respiratory: No pertinent hx Family History - Cancer: No pertinent family hx - Social History Living Situations: home Abuse History: No History of abuse Psych History: No pertinent hx Alcohol Use: none Drug Use: none - Immunizations Immunizations Up to Date: Yes Hx Pneumococcal Vaccination: Yes History of Influenza Vaccine: Yes Physical Exam - Physical Exam General Appearance: Present: wd/wn, alert, no apparent distress, anxious Ears, Nose, Throat: Present: normal pharynx Respiratory: Present: no respiratory distress, lungs clear, decreased breath sounds, expiration (prolonged) Cardiovascular/Chest: Present: regular rate, rhythm, no murmur Extremity Exam: Present: no edema Neurological Exam: Present: alert, oriented, normal mood/affect Skin Exam: Present: normal color, warm/dry ED Progress - Results and Orders Patient's Lab Results:: I have reviewed the patient's lab results. - Vital Signs Patient's Vital Signs:: I have reviewed the patient's vital signs. Vital Signs: Vital Signs 02/09/17 10:54 Temperature 36.1 C L Pulse Rate 101 H Respiratory 21 H Rate Blood Pressure 121/63 O2 Sat by Pulse 90 Oximetry initial O2sat 88% when getting in the room, increases to 90% on RA at rest - X-Ray X-Ray #1 X-Ray: chest - chronic, no acute changes Interpretation: Reviewed by me - Progress/Reassessment Chief Complaint: Dyspnea Progress Note-Subjective: 02/09/17 12:08 discussed test results with patient and family patient maintains O2sat of 90 at rest but decreases to mid 80's with activiti after neb treatment improved airmovement, patient feeling better 02/09/17 13:[address] Yi, as patient gets hypoxic with exertion admit for observation, might qualify for home O2 Departure Clinical Impression: COPD exacerbation - Departure Disposition: [facility] Condition: Stable
[2017-02-09 11:21] LABS: Hematocrit 35.6 % (42.0-52.0); Hemoglobin 11.2 gm/dL (13.5-18.0); Mean Cell Volume 87.7 fl (78-100); Mean Corpuscular Hemoglobin 27.6 pg (27-31); Mean Corpuscular Hgb Conc 31.5 g/dl (32-36); Mean Platelet Volume 10.2 fl (6.0-9.5); Neutrophil # 2.7 K/mm3 (1.3-6.0); Platelet Count 167 K/mm3 (150-450); Red Blood Count 4.06 M/mm3 (4.7-6.0); White Blood Count 3.6 K/mm3 (4.0-10.5)
[2017-02-09 11:40] LABS: Albumin * 3.2 gm/dl (3.4-5.0); Anion Gap 11.5 mmol/L (6.8-13.8); Bilirubin, Total 0.7 mg/dL (0.0-1.1); Ca. Corrected For Albumin 9.3 mg/dL (8.4-10.2); Carbon Dioxide 28.6 mmol/L (24-32.6); Potassium 4.1 mmol/L (3.4-4.6); Total Protein 6.5 gm/dL (6.2-8.2); Troponin I 0.018 ng/ml (0.00-0.10)
[2017-02-09] MEDS ORDERED: ALBUTEROL SULFATE 2.5 MG/0.5 ML VIAL.NEB IH ONE ×2 (12:05→12:07)
[2017-02-09] MEDS ORDERED: predniSONE 20 MG TABLET PO ONE (13:16)
[2017-02-09] MEDS ORDERED: predniSONE 20 MG TABLET ONE (13:23)
[2017-02-09] MEDS ORDERED: ALBUTEROL SULFATE 2.5 MG/0.5 ML VIAL.NEB IH PRN (13:27)
[2017-02-09] MEDS ORDERED: ALBUTEROL SULFATE/IPRATROPIUM 3 ML NEBU IH PRN (13:28)
--- NOTE | 2017-02-09 16:45 | HP ---
Chief Complaint - Chief Complaint Date of Service: 02/09/17 Time of Service: 16:44 Chief Complaint: Shortness of breath, right hip sore History of Present Illness: Miguel Angel is an 81 yo male that presented to my outpatient clinic today for sore on right hip. On triage he was dyspneic with oxygen 86% on room air, pulse 112, and respirations of 32. He was sent to ER for further evaluation. There his oxygen was 88% on room air. He was given a breathing treatment and with rest oxygen improved to 91% and he was less short of breath. He has a history of COPD with recent exacerbations and has recently been on steroids and antibiotics. He reports he was initially just coming in for sore on his right hip present for the last week. Area is red and painful. - Patient's Past Medical History Patient History - Medical: Anemia, Anxiety, Arthritis, Chronic Pain, Dementia, Depression, GERD, Kidney stone Patient History - Cardiac/Respiratory: COPD, Myocardial Infarction, Valvular Heart Disease, Other Patient History - Cancer: Prostate Patient History - Surgical Procedures: Appendectomy, Back Surgery, Cataracts, Colonoscopy, Cardiac stent, EGD, Total Hip Replacement, Total Knee Replacement, Hernia Repair, Orthopedic, Urology Patient History - Other: None - Family History Mother Family History - Medical: , Alzheimer's Disease Family History - Cardiac/Respiratory: No pertinent hx Family History - Cancer: No pertinent family hx - Social History Living Situations: assisted living - [facility] Abuse History: No History of abuse Psych History: No pertinent hx Smoking Status: Former smoker Have you smoked in the past 12 months: No Alcohol Use: none Drug Use: none - Immunizations Immunizations Up to Date: Yes Hx Pneumococcal Vaccination: Yes History of Influenza Vaccine: Yes Review Of Systems (GEN) - Review of Systems Generalized/Overall Review: Absent: Weakness, Chills, Fever EENTM: Present: No Symptoms Reported Respiratory: Present: Shortness of Breath. Absent: Cough, Orthopnea, Stridor, Wheezing Cardiac: Absent: Chest Pain, Edema, Palpitations Abdominal: Present: No Symptoms Reported Genitourinary: Present: No Symptoms Reported Musculoskeletal: Present: No Symptoms Reported Neurological: Present: No Symptoms Reported Skin: Present: Other - Posterior/lateral right hip superficial ulcer (Golf ball sized) Endocrine: Present: No Symptoms Reported Immunizations: IMMUNIZATION HX Immunizations Up to Date Yes History of Influenza Vaccine Yes Hx Pneumococcal Vaccination Yes Allergies/Adverse Reactions: Allergies Allergy/AdvReac Type Severity Reaction Status Date / Time orange (food color) Allergy Intermediate Shortness Verified 02/09/17 14:51 of Breath orange flavor Allergy Intermediate Shortness Verified 02/09/17 14:51 of Breath colchicine [From Colcrys] Allergy Unknown Verified 02/09/17 14:51 promethazine HCl Allergy Unknown Verified 02/09/17 14:51 [From Phenergan] sertraline Allergy Unknown Verified 02/09/17 14:51 hydrocodone [Hydrocodone] AdvReac Mild out of his Verified 02/09/17 14:51 head nortriptyline [Nortriptyline] AdvReac Mild Headache Verified 02/09/17 14:51 oxycodone [Oxycodone] AdvReac Mild out of his Verified 02/09/17 14:51 head pregabalin [From Lyrica] AdvReac Mild Headache Verified 02/09/17 14:51 zolpidem [Zolpidem] AdvReac Mild out of his Verified 02/09/17 14:51 head Home Medications: HOME MEDICATIONS Acetaminophen 650 mg PO Q4H PRN 06/03/16 [Last Taken Unknown] Aspirin [Aspirin EC] 81 mg PO DAILY 06/03/16 [Last Taken Unknown] Atorvastatin Calcium 10 mg PO HS 06/03/16 [Last Taken Unknown] Cholecalciferol (Vitamin D3) [Vitamin D3] 1,000 unit PO DAILY 06/03/16 [Last Taken Unknown] Ipratropium [place] 0.2 mg IH BID 06/03/16 [Last Taken Unknown] Mirtazapine [Remeron] 15 mg PO HS 06/03/16 [Last Taken Unknown] Tamsulosin HCl [Flomax] 0.4 mg PO 1700 06/03/16 [Last Taken Unknown] Donepezil HCl [Aricept] 10 mg PO HS 11/25/16 [Last Taken Unknown] Loratadine 10 mg PO DAILY 11/25/16 [Last Taken Unknown] clonazePAM [Klonopin] 0.5 mg PO BID PRN 11/25/16 [Last Taken Unknown] Albuterol Sulfate [Proair Respiclick] 90 mcg IH Q4H PRN #1 aer.pow.ba 01/16/17 [ Last Taken Unknown] Albuterol Sulfate/Ipratropium [Duoneb 2.5-0.5MG/3ML Soln] 3 ml IH Q4HRT PRN # 120 nebu 01/16/17 [Last Taken Unknown] Cephalexin [Keflex] 500 mg PO QID 02/09/17 [Last Taken 02/09/17 12:00] Montelukast Sodium [Singulair] 10 mg PO HS 02/09/17 [Last Taken Unknown] Exam - Exam Vital Signs: Vital Signs - Last Taken Temp 36.7 C 02/09/17 14:15 Pulse 100 02/09/17 14:15 Resp 24 H 02/09/17 14:15 BP 138/63 02/09/17 14:15 Pulse Ox 96 02/09/17 14:15 Constitutional: Present: Alert, Oriented x3, Cooperative ENT Exam: Present: hearing grossly normal Eye Exam: bilateral eye: normal inspection Respiratory: Present: decreased breath sounds Cardiovascular/Chest: Present: no murmur, tachycardia Abdomen: Present: Normal bowel sounds, soft, nontender, nondistended, no rebound tenderness Extremity: Present: normal inspection, no pedal edema Skin Exam: Present: normal color, warm/dry, no cyanosis, other - Golf ball sized superficial ulcer on posterior/lateral right hip Neurologic: Present: alert, normal mood/affect, oriented x 3 Appearance: Present: appropriate appearance, appropriate insight Eye contact: Present: cooperative, good eye contact, normal speech Thoughts: Present: normal thought pattern, no apparent hallucination Diagnostic Studies: Laboratory Results WBC 3.6 K/mm3 (4.0-10.5) L 02/09/17 11:10 RBC 4.06 M/mm3 (4.7-6.0) L 02/09/17 11:10 Hgb 11.2 gm/dL (13.5-18.0) L 02/09/17 11:10 Hct 35.6 % (42.0-52.0) L 02/09/17 11:10 MCV 87.7 fl (78-100) 02/09/17 11:10 MCH 27.6 pg (27-31) 02/09/17 11:10 MCHC 31.5 g/dl (32-36) L 02/09/17 11:10 RDW 14.0 % (11.5-14.0) 02/09/17 11:10 Plt Count 167 K/mm3 (150-450) 02/09/17 11:10 MPV 10.2 fl (6.0-9.5) H 02/09/17 11:10 Immature Gran % (Auto) 0.60 % (0.001-0.429) H 02/09/17 11:10 Immature Gran # (Auto) 0.02 K/mm3 (0.000-0.0310) 02/09/17 11:10 Neutrophils % 74.0 % (42-75.0) 02/09/17 11:10 Lymphocytes % 13.1 % (20-51) L 02/09/17 11:10 Monocytes % 6.7 % (0.0-9) 02/09/17 11:10 Eosinophils % 5.0 % (0.0-3.0) H 02/09/17 11:10 Basophils % 0.6 % (0.0-1.0) 02/09/17 11:10 Nucleated RBC % 0.0 k/mm3 (0-1) 02/09/17 11:10 Neutrophils # 2.7 K/mm3 (1.3-6.0) 02/09/17 11:10 Lymphocytes # 0.5 k/mm3 (1.5-3.5) L 02/09/17 11:10 Monocytes # 0.2 k/mm3 (0.0-1.0) 02/09/17 11:10 Eosinophils # 0.2 k/mm3 (0.0-0.7) 02/09/17 11:10 Absolute Basophils 0.0 k/mm3 (0.0-0.1) 02/09/17 11:10 Sodium 144 mmol/L (132-142) H 02/09/17 11:10 Plasma Sodium 144 mmol/L (130-142) H 02/09/17 11:10 Potassium 4.1 mmol/L (3.4-4.6) 02/09/17 11:10 Chloride 108 mmol/L (97-106) H 02/09/17 11:10 Carbon Dioxide 28.6 mmol/L (24-32.6) 02/09/17 11:10 Anion Gap 11.5 mmol/L (6.8-13.8) 02/09/17 11:10 BUN 29 mg/dL (6-23) H 02/09/17 11:10 Creatinine 1.32 mg/dL (0.4-1.4) 02/09/17 11:10 Est GFR (Non-Af Amer) 55 mL/min (60-130) L D 02/09/17 11:10 BUN/Creatinine Ratio 22.0 (9.0-21.6) H 02/09/17 11:10 Random Glucose 101 mg/dL (70-110) 02/09/17 11:10 Calcium 9.0 mg/dL (7.9-10.9) 02/09/17 11:10 Calcium Adj for Albumin 9.3 mg/dL (8.4-10.2) 02/09/17 11:10 Total Bilirubin 0.7 mg/dL (0.0-1.1) 02/09/17 11:10 AST 17 U/L (0-48) 02/09/17 11:10 ALT 16 U/L (19-67) L 02/09/17 11:10 Alkaline Phosphatase 81 U/L (50-170) 02/09/17 11:10 Troponin I 0.018 ng/ml (0.00-0.10) 02/09/17 11:10 B-Natriuretic Peptide 283 pg/mL (5-650) 02/09/17 11:10 Total Protein 6.5 gm/dL (6.2-8.2) 02/09/17 11:10 Albumin 3.2 gm/dl (3.4-5.0) L 02/09/17 11:10 Assessment/Plan - Assessment/Plan (1) Respiratory failure Assessment: Respiratory failure of 86% on room air. Chest xray shows COPD. Known COPD patient. He has had recurrent episodes of COPD recently. Unclear if this is acute respiratory failure that will improve with treatment or the findings of chronic respiratory failure that has developed due to COPD. Will admit to observation. Will evaluate with ambulation if he qualifies for home oxygen. Will treat with steroids and antibiotics for COPD exacerbation. Problem: Acute (2) Stage 1 decubitus ulcer Assessment: Ulcer needs off loaded. Will place mepilex over ulcer. No infection. Problem: Acute (3) COPD (chronic obstructive pulmonary disease) Problem: Chronic
[2017-02-09] MEDS: IPRATROPIUM BROMIDE 0.5 MG/2.5 ML VIAL.NEB IH SCH (18:11)
[2017-02-10] MEDS ORDERED: clonazePAM 0.5 MG TABLET PO PRN (06:11)
[2017-02-10] MEDS ORDERED: ACETAMINOPHEN 325 MG TABLET PO PRN (06:11)
[2017-02-10] MEDS ORDERED: ALBUTEROL SULFATE 2.5 MG/0.5 ML VIAL.NEB IH PRN (06:11)
[2017-02-10] MEDS: IPRATROPIUM BROMIDE 0.5 MG/2.5 ML VIAL.NEB IH SCH (06:25)
[2017-02-10] MEDS ORDERED: IPRATROPIUM BROMIDE 0.5 MG/2.5 ML VIAL.NEB IH SCH (07:00)
[2017-02-10] MEDS ORDERED: AZITHROMYCIN 250 MG TABLET PO ONE (07:57)
[2017-02-10] MEDS ORDERED: LORATADINE 10 MG TABLET PO SCH (09:00)
[2017-02-10] MEDS ORDERED: ASPIRIN 81 MG TABLET.DR PO SCH (09:00)
[2017-02-10] MEDS ORDERED: CHOLECALCIFEROL 1,000 UNIT CAPSULE PO SCH (09:00)
[2017-02-10 11:05] VITALS: BP 124/66
--- NOTE | 2017-02-10 13:28 | DS ---
(1) Respiratory failure Diagnosis(s): Miguel Angel was admitted after being found in clinic and then after being sent over to the ER for further evaluation to have respiratory failure with ambulation. He would drop down as low as 86% with activity on room air. On room air at rest he would recover. Evaluation showed no acute changes. At rest he was comfortable. He was admitted to observation and monitored. He continued to do well at rest but significantly short of breath with activity and hypoxia. He was treated for possible COPD exacerbation with steroids and azithromycin, but continued to have hypoxia with activity. I suspect this is the development of chronic respiratory failure. He was qualified with oxygen as he needs 2lpm to keep oxygen saturation >90% with activity. He does not need oxygen at rest. He will be discharged to home with oxygen as he continues to drop to 86% on room air with activity. He improves to >90% with 2lpm of oxygen during activity. He remains >90% on room air with rest. He should use with activity and then continue until he recovers after activity. He does not need to use this continuously. Will continue prednisone and azithromycin to see if this has any benefit. Will start incruse elipta daily to see if this helps his overal function and can improve his need for oxygen with activity. Problem: Chronic Qualifiers: Chronicity: chronic Respiratory failure complication: hypoxia Qualified Code(s): J96.11 - Chronic respiratory failure with hypoxia (2) Stage 1 decubitus ulcer Diagnosis(s): On admission he was found to have a superficial ulcer on posterior/lateral aspect of right hip. Mepilex was placed. This will be changed every 72 hours until healed. He was educated on increasing activity and to keep pressure off this area. Problem: Acute (3) COPD (chronic obstructive pulmonary disease) Problem: Chronic Procedures Performed: none Discharge Disposition: [facility] Disposition: [facility] Condition: Stable Discharge Activity: Activity as tolerated Discharge Diet: General/regular food Referrals: Cricket Yi DO [Primary Care Provider] - One Week Problem Oriented Discharge Instructions to Patient/Family: Chronic Respiratory Failure, How to Prevent Pressure Injuries Additional Patient Instructions (free text): Follow-up with Dr. Yi on 02/17/17 at 2:00 p.m. Portable oxygen 2LPM with activity. Prescriptions (Any new or edited meds): Azithromycin 250 mg PO DAILY #4 tablet Foam Bandage [Mepilex Border] 1 each TP Q72H #10 bandage predniSONE [Prednisone] 2 tab PO BID #25 tab Umeclidinium [place] [Incruse Ellipta] 62.5 mcg IH DAILY #30 blst.w.dev Complete Home Medications List: Complete Home Medication List: Acetaminophen 650 mg PO Q4H PRN 06/03/16 Aspirin [Aspirin EC] 81 mg PO DAILY 06/03/16 Atorvastatin Calcium 10 mg PO HS 06/03/16 Cholecalciferol (Vitamin D3) [Vitamin D3] 1,000 unit PO DAILY 06/03/16 Ipratropium [place] 0.2 mg IH BID 06/03/16 Mirtazapine [Remeron] 15 mg PO HS 06/03/16 Tamsulosin HCl [Flomax] 0.4 mg PO 1700 06/03/16 Donepezil HCl [Aricept] 10 mg PO HS 11/25/16 Loratadine 10 mg PO DAILY 11/25/16 clonazePAM [Klonopin] 0.5 mg PO BID PRN 11/25/16 Albuterol Sulfate [Proair Respiclick] 90 mcg IH Q4H PRN #1 aer.[email or web address] 01/16/17 Albuterol Sulfate/Ipratropium [Duoneb 2.5-0.5MG/3ML Soln] 3 ml IH Q4HRT PRN # 120 nebu 01/16/17 Montelukast Sodium [Singulair] 10 mg PO HS 02/09/17 Azithromycin 250 mg PO DAILY #4 tablet 02/10/17 Foam Bandage [Mepilex Border] 1 each TP Q72H #10 bandage 02/10/17 Umeclidinium [place] [Incruse Ellipta] 62.5 mcg IH DAILY #30 blst.w.dev predniSONE [Prednisone] 2 tab PO BID #25 tab 02/10/17 Amb Orders for Discharge: Home Oxygen Discharge Order Location: Determined By Patient
[2017-02-10] MEDS ORDERED: TAMSULOSIN HCL 0.4 MG CAP.SR.24H PO SCH (17:00)
[2017-02-10] MEDS ORDERED: MONTELUKAST SODIUM 10 MG TABLET PO SCH (21:00)
[2017-02-10] MEDS ORDERED: DONEPEZIL HCL 10 MG TABLET PO SCH (21:00)
[2017-02-10] MEDS ORDERED: ROSUVASTATIN CALCIUM 10 MG TABLET PO SCH (21:00)
[2017-02-10] MEDS ORDERED: MIRTAZAPINE 15 MG TABLET PO SCH (21:00)
== END 2017-02-10 14:40 ==
LOC: ER 10:47 → MS 13:14
PROVIDERS: ADMIT Family Medicine; ATTEND Family Medicine
DX: J96.21 Acute and chronic respiratory failure with hypoxia (principal); Z87.891 Personal history of nicotine dependence; L89.211 Pressure ulcer of right hip, stage 1; J44.1 Chronic obstructive pulmonary disease with (acute) exacerbation
CPT/HCPCS: 36415; 71020; 80053; 83880; 84484; 85025; 87081; 93005; 94640; 99284; G0378